=== PATIENT | male | born 1950 | race American Indian/Alaskan Native ===

== ENCOUNTER 2021-10-11 13:50 | Emergency (ER) | payer OTHER ==
[~2021-10-11] VITALS: Ht 182.9 cm; Wt 116.1 kg
== END 2021-10-11 16:16 | disposition home or self-care (01) ==
LOC: ED 13:50
DX: S80.01XA Contusion of right knee, initial encounter (principal); I10 Essential (primary) hypertension; Z88.0 Allergy status to penicillin; W19.XXXA Unspecified fall, initial encounter
CPT/HCPCS: 73560; 99283-25

== ENCOUNTER 2021-10-21 01:40 | Inpatient (IN) | payer OTHER ==
[~2021-10-21] VITALS: Ht 182.9 cm; Wt 119.0 kg
--- OUTSIDE RECORDS SUMMARY | 2021-10-21 03:29 | XMS ---
PreManage Notification: MOISES BHATIA Security Zigzag App[employer]quer Events No recent Security Events currently on file CRITERIA MET - [facility] - 2 Visits in 30 Days CARE PROVIDERS There are no care providers on record at this time. Karrie has no Care Guidelines for this patient. [facility] (12 MO.) [facility] [place] TOTAL 3 NOTE: Visits indicate total known visits. ED/C VISIT TRACKING (12 MO.) 10/21/2021 01[facility]40 [facility] [place] [facility]: Emergency COMPLAINT: - VOMITING 10/18/2021 14:34 [facility] Andrew MCDONALD TYPE: Emergency DIAGNOSES: - Other injury of unspecified body region, initial encounter - Knee Pain - Unilateral primary osteoarthritis, right knee - knee swelling - Contusion of right knee, initial encounter 10/11/2021 13:50 [facility] Sanabria TYPE: Emergency COMPLAINT: - FALL,RT KNEE INJ DIAGNOSES: - Allergy status to penicillin - Essential (primary) hypertension - Unspecified fall, initial encounter - Contusion of right knee, initial encounter - Pain in right knee INPATIENT VISIT TRACKING (12 MO.) No inpatient visits to display in this time frame [email or web address]
--- NOTE | 2021-10-21 06:50 | NUR ---
pt ARRIVED TO CCU VIA STRETCHER FROM ED. pt ABLE TO TRANSFER SELF OVER TO BED FROM STRETCHER. THIS RN DID INTAKE ASSESSMENT. pt LIVES BY SELF IN AN APARTMENT WITH DAUGHTER LIZZIE [place] [place] [address]. pt HAS A LARGE HEMATOMA ON RIGHT LEG [facility] pt ALSO HAS SHRAPNEL WOUND IN LEG AND DEFORMITY TO LEFT ANKLE. PROVIDED WATER. CALL LIGHT WITHIN REACH.
--- NOTE | 2021-10-21 07:41 | NUR ---
CARE OF APTIENT RESUMES AT THIS TIME. OCTREOTIDE TURNED OFF AND LEVOPHED TURNED DOWN FROM 7.5 TO 4 MCG/MIN. PT STATES HE IS FEELING OKAY, AND HAD AN EVENTFUL NIGHT. PT'S DAUGHTER JAVIER REMAINS IN ROOM AND ATTENTIVE TO PATIENT.
--- NOTE | 2021-10-21 08:30 | NUR ---
CENTRAL LINE DRESSING CHANGED ON RIGHT NECK. PT ALSO ON ROOM AIR NOW SP02 IS 97% ON 1 L. SP02 93% ON ROOM AIR. PT TAKEN OFF LEVOPHED. BP NOW 80/68 (73). WILL CONTINUE TO MONITOR CLOSELY. PT WANTS CLEAR LIQUIDS, BUT ALSO HAVING 10/10 ABDOMINAL PAIN. ASKED PT TO STAY NPO AT THIS TIME UNTIL THIS RN CAN COMMUNICATE WITH MD REGARDING IF HE SHOULD BE EATING ATALL OR NOT. PT ALSO REPORTS THAT HIS LAST BM AT HOME WAS BLACK AND DIARRHEA, WHICH OCCURED FRIDAY.
--- NOTE | 2021-10-21 10:17 | NUR ---
DR. JESUS IN TO SEE PATIENT AND PLAN OF CARE BEING DISCUSSED. LR TO BE STARTED AT 125 ML/HR. PT ASKING FOR MORE PAIN MEDICATION, WELL SOMETHING TO DRINK.
--- NOTE | 2021-10-21 10:59 | NUR ---
PATIENT GIVEN GI COCKTAIL BUT IS STILL WANTING WATER. DISCUSSED WITH PT THAT DR. LEE WILL SEE HIM. PT FRUSTRATED AND WANTING TO KNOW WHAT TIME HE WILL BE SEEN. IVF CONTINUE AT 125 ML/HR. BP REMAINS GOOD OFF LEVOPHED, CURRENTLY 115/79.
--- NOTE | 2021-10-21 11:44 | NUR ---
PATIENT REPORTS THAT GI COCKTAIL DID NOT HELP HIS PAIN IN HIS ABDOMEN. PT WILL BE GIVEN MORPHINE NOW PER DR. JESUS ORDER. PT HAS WHITE D/C NOW WELL. ONCE IV PROTONIX GTT IS FINISHED, PT WILL SWITCH TO BID DOSING. WILL CONTINUE TO MONITOR.
--- NOTE | 2021-10-21 12:02 | NUR ---
PATIENT USES CALL LIGHT AND STATES, "THIS MEDICATION ISN'T WORKING. MY STOMACH IS HURTING SO BAD." HELPED PATIENT TO SIT UP AT EDGE OF BED AND PT STARTS TO DRY HEAVE. NO VOMITING NOTED YET BUT HAS DRY HEAVED 4-[address] LEE IN TO SEE PATIENT AND PLAN OF CARE BEING DISCUSSED. PT STARTING TO SHAKE VIOLENTLY AND ASKING FOR MORE WARM BLANKETS. TEMP CHECKED ORALLY AND FOUND TO BE 98.2. PT GIVEN MORPHINE AND ZOFRAN. WILL CONTINUE TO MONITOR CLOSELY.
--- NOTE | 2021-10-21 12:41 | NUR ---
PATIENT TAKEN TO HAVE UPPER SCOPE AT 1235. REPORT GIVEN TO OR NURSES. PT'S DAUGHTER JAVIER CALLED TO GIVE UPDATE ON PROCEDURE. PT RESTING SLIGHTLY MORE COMFORTABLY AFTER THE 2 MG IV MORPHINE WAS GIVEN.
--- NOTE | 2021-10-21 13:33 | NUR ---
PT ARRIVES BACK TO ROOM FROM PACU WITH NURSE AND INTERVENTIONAL SALE CONSULTANT. PT SLOWLY WAKING UP. DOES REMAIN CONFUSED TO LOCATION AND EVENT, BUT IS COMING AROUND. REPORT FROM [place]. PT DENIES PAIN AT THIS TIME.
--- NOTE | 2021-10-21 13:45 | NUR ---
10/21/21 1345 Zoe Melissa 4045-PATIENT RETURNED TO CCU DROWSY ANJELICA PAYMASTER OF [employer]SES GAVE REPORT TO ROSE MARIE BYRNES PATIENT REPOSITIONED TO NEW BED. PATIENT DOES NOT NEED TO BE RECOVERED BY PACU.
--- NOTE | 2021-10-21 13:46 | NUR ---
PTS O2 TURNED DOWN TO 3L FROM 5L. SAT REMAINS 96%
--- NOTE | 2021-10-21 13:54 | NUR ---
1353- WHILE TURNING PT TO REMOVE EXTRA BLANKETS, PTS BLOOD PRESSURE DROPS TO 70S WITH LOW MAPS. TURNED ON LEVOPHED DRIP TO 2 MCG/MIN. 1356- PT REMAINS WITH LOW BLOOD PRESSURE 87/36 WITH MAP OF 51. LEVOPHED TURNED UP TO 4 MCG/MIN. PT WAKES EASILY TO VOICE. BEGINNING TO ASK QUESTIONS OF WHAT HAPPENED.
--- NOTE | 2021-10-21 14:06 | NUR ---
PTS VITALS STABLE ON 4 MCG/MIN OF LEVOPHED. WAKES EASILY TO NURSE. ORIENTED TO PERSON AND PLACE. ASKING APPROPRIATE QUESTIONS. RESPS EVEN. PT REPORTS SOME PAIN TO ABD THOUGH QUICKLY BACK TO SLEEP. NO SIGNS OF DISTRESS.
--- NOTE | 2021-10-21 14:34 | NUR ---
PATIENT RETURNS FROM GI SUITE AFTER HAVING UPPER GI SCOPE WITH DR. LEE. PT NOW ON LR AT 75 ML/HR INFUSING INTO RIGHT CENTRAL LINE. PT ON LEVOPHED AT 4 MCG/MIN, BUT THIS WAS ABLE TO BE TITRATED DOWN TO 2 MCG/MIN AFTER BP SBP >[address] LEE WANTING THIS TURNED OFF SOON POSSIBLE. PT IS DUE TO VOID AFTER HAIVNG WHITE OUT AROUND 1000. PT'S DAUGHTER JAVIER ARRIVES AND GIVEN UPDATE FROM DR. LEE AND THIS RN. ORDERS FOR CARFATE, AND FOR CLEAR LIQUIDS, BUT TO BE GIVEN CAUTIOUSLY TO TRY AND PREVENT PT FROM BECOMING NAUSEOUS AND VOMITING ANY FURTHER. PT HAD A PEEWEE ULCER FOUND ON SCOPE AND CLOTTING AGENT WAS USED ON IT. WILL CONTINUE TO MONITOR CLOSELY.
[2021-10-21] MEDS ORDERED: ASPIRIN81 MG PO (16:30)
[2021-10-21] MEDS ORDERED: OMEPRAZOLE20 MG PO (16:32)
--- NOTE | 2021-10-21 17:10 | NUR ---
PATIENT SITTING UP RIGHT AND EATING CLEAR LIQUID TRAY. NO FURTHER VOMITING NOTED OF YET TODAY, AND ABDOMINAL PAIN SEEMS SLIGHTLY BETTER AT THIS TIME COMPARED TO EARLIER. PT HAS RECEIVED 3 DOSE OF IV MORPHINE FOR 10/10 ABD PAIN. WHEN PT'S DAUGHTER ARRIVES SHE NOTES THAT PATIENT USED TO BE "ALLERGIC" TO MORHPINE FROM A MUCH PRIOR EXPERIENCE ACCORDING TO THE PATIENT, BUT THIS WAS UNKNOWN UPON ORDERING MORPHINE EARLIER TODAY. THUS FAR, PATIENT HAS HAD NO ADVERSE REACTIONS TO THE MORPHINE. PT STATES "I DONT' REALLY THINK I AM ALLERGIC TO MORPHINE, THAT WAS FROM WAY BACK WHEN AND THEY WERE GIVING MORPHINE TO EVERYONE." WILL CONTINUE TO MONITOR ZOE.
--- NOTE | 2021-10-21 19:51 | NUR ---
PT IS SITTING UP IN BED Loyda STEPHEN IS AT BEDSIDE PROVIDE SCHEDULED NEB TREATMENT.
--- NOTE | 2021-10-21 20:30 | NUR ---
PT ALERT AND ORIENTED VOIDED 250ML IN URINAL. HE IS CONCERNED ABOUT WHEN HE CAN GO HOME AND WHEN HE IS GOING TO BE ALLOWED TO TAKE HIS NORMAL PAIN REGIME PER HOME, HE ALSO SAID IT HAS BEEN INCREASED RECENTLY FROM 2 TO 3 TABS. CBC HAS BEEN DRAWN WITH 5ML OF WASTE WHILE IV PUMP STOPPED FROM LEFT IJ, BRISK BLOOD RETURN.
--- NOTE | 2021-10-21 23:01 | NUR ---
PT CALLED TO REQUEST PAIN MEDICATION, 2MG IV MORPHINE ADMINISTERED PRN. PT REPORTS 9/10 PAIN AT HIS BACK THIS IS CHRONIC.
--- NOTE | 2021-10-22 01:03 | NUR ---
PT CALLED NURSES STATION TO REQUEST PAIN MEDICATIONAT THIS TIME HE REPORTS 9/10 PAIN CHRONIC BACK PAIN. PT REPORTS NO NAUSEA, HE SAID HE HAS "HAS TWINGE MINIMAL PAIN OCCASIONALLY" HE SAID IT IS TOLERABLE.
--- NOTE | 2021-10-22 01:59 | NUR ---
INTO PT ROOM TO DRAW CBC FROM IJ, PT RESTING IN BED EYES CLOSED RR REGULAR. NO DISTRESS NOTED. PT ALERT TO RN AT BEDSIDE.
--- NOTE | 2021-10-22 02:20 | NUR ---
PT CALLED TO REQUEST PAIN MEDICATION, THE CURRENT MORPHINE ORDER FOR PAIN IS NOT AVAILABLE YET, CALLED PT HAS BEEN ADMINISTERED 2MG IV MORPHINE PRN Q2 HOURS AND IS NOW REQUESTING PAIN MEDICATION FOR 9/10 PAIN CHRONIC BACK PAIN, MORPHINE NOT AVAILABLE FOR 45 MIN., REPORTED THAT PT WOULD LIKE TO START BACK ON HIS HOME REGIME. GAVE ORDER TO START OXYCODONE 5-10 MG PO PRN AT THIS TIME. ALSO UPDATED ON MOST RECENT CBC RESULTS HE ASKED THAT THIS RN CHECK WITH LAB AND MAKE SURE THERE IS A UNIT OF RBC CROSS MATCHED AND READY FOR TRANSFUSION FOR AM PENDING CBC RESULTS.
--- NOTE | 2021-10-22 02:30 | NUR ---
CALLED LAB TO CHECK IF PT HAS RBC UNIT AVAILABLE AND CROSS MATCH FOR TRANSFUSION IF NEEDED IN AM, CHERELLE FROM LAB SAID YES THERE ARE TWO "O" NEG UNITS CROSS MATCHED FOR HIM IF NEEDED.
--- NOTE | 2021-10-22 05:27 | NUR ---
PT RESTING IN BED EYES CLOSED RR REGULAR AT 18 BPM, NO DISTRESS NOTED.
--- NOTE | 2021-10-22 05:44 | NUR ---
CALL LIGHT ON. pt REQUESTED PAIN MEDICATION. REPORTED THAT THE ORAL PAIN MEDICATION WORKED BETTER. EDUCATED pt ON TIMING OF MEDICATIONS. pt IS OKAY WAITING FOR NEXT DOSE OF ORAL MEDICATION. URINAL EMPTIED OF 350MLS DARK YELLOW URINE. CALL LIGHT WITHIN REACH.
--- NOTE | 2021-10-22 06:00 | NUR ---
PT CALLED FOR PAIN MEDICATIONS, OXYCODONE 10MG PRN ADMINISTERED, AM ASSESSMENT COMPLETE. PT PROVIDED WITH STRAWBERRY JELLO AND FRESH WATER. PT STOOD AT BEDSIDE TO HAVE BED LINENS STRAIGHTENED, HE THEN HAD NO FURTHER REQUESTS THIS AM.
--- NOTE | 2021-10-22 08:00 | NUR ---
CARTOGRAPHIC DESIGNER, MEDICATION GIVEN. PATIENT SLEEPING COMFORTABLY IN BED. MILDY DROWSY DUE TO PREVIOUS SHIFT PRN MEDICATIONS GIVEN, BUT DOES WAKE EASILY AND RESPONDS APPROPRIATELY. PATIENT ABLE TO FOLLOW COMVERSATION AND FOLLOW COMMANDS WHEN ASKED. PATIENT WANTED TO WAIT ON BREAKFAST AT THIS TIME AND DENIES ANY NEEDS. PERSONAL ITEMS AND CALL LIGHT WITHIN REACH.
--- NOTE | 2021-10-22 10:00 | NUR ---
Patient is sitting up in bed getting ready to independently use urinal. Patient states his pain is doing well and doesn't need anything additional at this time. Patient able to eat clear liquid breakfast without difficulty and tolerated well. Patient is perfusing better and has better color this morning compared to yesterday. Patient denies needs at this time. Patient told he would be transferring to MS unit today. Personal items and call light within reach.
--- NOTE | 2021-10-22 11:01 | NUR ---
Report given to FITZ Cook for MS unit transfer.
--- NOTE | 2021-10-22 11:45 | NUR ---
Patient to the medical floor at this time. Patient arrived to unit a/ox4. Admin oxycodone 10mg po for reported back/leg pain, 10/27. Vital signs stable at this time. Oriented pt to room and call light.
[2021-10-22] MEDS ORDERED: ZESTRIL40 MG PO (15:51)
[2021-10-22] MEDS ORDERED: ALBUTEROL2.5 MG/3 M INH (15:51)
--- NOTE | 2021-10-22 19:15 | NUR ---
report from iris moeller, pt returned today from egd - no current bleed at this time, low h/h noted. 3 lumen iv right neck intact sl, confirm stool sample needed for hpylori - pt denies needs, call light in reach.
--- NOTE | 2021-10-22 21:17 | NUR ---
to pt room, sob, sats 94% ra, hr 98. pt sitting up at bed, feet on floor - denies rt tx, just wants to sit up. offered tray table to orthopnic rest - denies.
--- NOTE | 2021-10-22 23:26 | NUR ---
pt requested pain meds, rn provided med ordered 5 mg oxy. pt upset that there was only 1 pill? he said he had been taking 2 - reviewed MAR with pt and 5mg 1 pill has been given last 4 doses. discussed with discharge planner, pt took the 5mg and will call dr in am. and cont to use tylenol and oxy as scheduled prn.
--- NOTE | 2021-10-22 23:32 | NUR ---
DISCUSSED WITH MARKETING ANALYTICS ANALYST, ADDED HEPARIN 3 LUMEN R IJ, FLUSH Q12 AND PRN.
--- NOTE | 2021-10-23 00:48 | NUR ---
PT PROVIDED STRAWBERRY ENSURE - RESTING IN BED, CALL LIGHT IN REACH - PO PAIN MEDS GIVEN - CO OF R KNEE PAIN.
--- NOTE | 2021-10-23 02:59 | NUR ---
eyes closed, resp even, call light in reach.
--- NOTE | 2021-10-23 04:40 | NUR ---
0300-Pt up to bed edge to use urinal,winded with activity. Repositoned in the bed and given an ensure drink at his request.
--- NOTE | 2021-10-23 05:08 | NUR ---
5287- Pt calls asking for pain Rx for 10/10 Rt knee pain. 10mg oxycodone po given. Pt sits at edge of bed to take medication and use urinal.
--- NOTE | 2021-10-23 05:20 | NUR ---
0520- [facility] Dc'd for oozing some blood, pt states its irritating him. Tip intact, pressure applied.
--- NOTE | 2021-10-23 07:05 | NUR ---
Report received from Margie BYRNES. Pt resting in bed, on room air, awakens to voice and states no needs at this time. Will continue plan of care. Call light in reach.
--- NOTE | 2021-10-23 08:41 | NUR ---
Scheduled medications administered, assessment complete. Pt reports pain to back, RLE and LLE. Made plan for PRN medication when available. Pt SOB with exertion- states baseline with COPD. Lungs coarse w exp wheeze noted throughout. Bowel tones active. CMS intact- significant bruising and scarring on RLE. Breakfast delivered.
--- NOTE | 2021-10-23 09:06 | NUR ---
Pt medicated with PRN oxycodone and tylenol for 8/10 back, R leg pain.
--- NOTE | 2021-10-23 11:05 | NUR ---
Administered scheduled carafate. Pt states pain has improved with PRN meds. Discussed plan of care for day, pt agreeable.
--- NOTE | 2021-10-23 11:40 | NUR ---
Pt states he lives in a handicap appartment. Daughter and he son's live across the street and help him with all needs. He is a and uses their services. Pt plans on dc to home when he discharges. States his GI bleed has stopped.
--- NOTE | 2021-10-23 12:25 | NUR ---
Scheduled ABX given. Made plan for PRN meds when available.
--- NOTE | 2021-10-23 13:20 | NUR ---
Pt medicated with PRN oxycodone and tylenol. VSS, I/Os complete. Pt encouraged to drink po fluids as urine dark. Pt verbalizes understanding.
--- NOTE | 2021-10-23 17:07 | NUR ---
Scheduled medications administered. PRN pain medication given to patient for 8 back pain. Water refilled, urinal emptied. Pt in good spirits. No further needs at this time.
--- NOTE | 2021-10-23 19:25 | NUR ---
report agnieszka Tsai rn, pt with 3 lumen sl ij to right side wnl, still need stool sample for h pylori, pt toll reg. diet, denies needs, call light in reach.
--- NOTE | 2021-10-23 21:36 | NUR ---
PT TALKATIVE IN GOOD SPIRITS - TALKING ABOUT GRANDKIDS! PT HAS AUDIBLE WHEEZES - CHRONIC COPD 97% RA. DENIES NAUSA VOMITING, NEW STRAWBERRY ENSURE PROVIDED - VITALS WNL, I/O - ENC. WATER - PT SL R ARM. CALL LIGHT IN REACH - PO PAIN MEDS GIVEN FOR CHRONIC BACK PAIN
--- NOTE | 2021-10-24 00:06 | NUR ---
pt called and new grad answered light - reported to me that pt was shaking and described PTSD as the cause. wm blkts given, reduced light and tv and pt resolved stress and fell back asleep. rn checked and eyes closed, resp even. call light in reach.
--- NOTE | 2021-10-24 06:32 | NUR ---
[facility] DOW[facility] [phone], SEE PAPER CHARTING.
--- NOTE | 2021-10-24 07:46 | NUR ---
Report received from Margie BYRNES. Pt resting in bed with eyes closed, even and unlabored respirations on room air. No needs identified at this time. Call light in reach.
--- NOTE | 2021-10-24 08:30 | NUR ---
Arrived in patient's room, patient is oriented to year and time. He states that he feels like his care has been good in the hospital and that "they have done a good job." Juan verbalizes that his pain has been well controlled and he understands the medications that he has been given. He denies complaints or concerns at this time.
--- NOTE | 2021-10-24 08:47 | NUR ---
Scheduled medications administered, assessment complete. pt sitting up at EOB and states feeling nauseated, prn zofran administered, pt states last BM 10/19/21. Pt reports pain in back, made plan for PRN medications. Lungs coarse, baseline COPD, exp wheeze heard scattered. HRR. Bowel tones active.
--- NOTE | 2021-10-24 10:00 | NUR ---
Pt medicated with PRN oxycodone and tylenol for 8/10 chronic back pain. Pt states somewhat nauseated, denies need for medication, would like to rest at this time. Call light in reach.
--- NOTE | 2021-10-24 10:38 | NUR ---
Scheduled medications administered, pt resting in bed, using urinal. No further needs at this time.
--- NOTE | 2021-10-24 14:11 | NUR ---
PATIENT GIVEN 10MG OF OXYCODONE AND A TYLENOL FOR 10/10 BACK/KNEE PAIN.
--- NOTE | 2021-10-24 15:05 | NUR ---
No change in plan for dc. Pt will not dc today.
--- NOTE | 2021-10-24 15:10 | NUR ---
PATIENT BRUSHED HIS OWN DENTURES ALSO WASHED HIS FACE. ASKED HIM IF HE WOULD LIKE A SHOWER. HE REALY DIDN'T GIVE ME AN ASWER.
[2021-10-24] MEDS ORDERED: CLARITHROMYCIN500 MG PO (16:27)
[2021-10-24] MEDS ORDERED: METRONIDAZOLE250 MG PO (16:28)
[2021-10-24] MEDS ORDERED: PANTOPRAZOLE SO40 MG PO (16:33)
[2021-10-24] MEDS ORDERED: CARAFATE1 GM PO (16:36)
--- NOTE | 2021-10-24 17:24 | NUR ---
Central line discontinued WNL with catheter tip intact and line measuring 21.5cm. Pressure held until stable, pressure dressing applied with petroleum and sterile gauze. Dressing C/D/I. Pt educated on post removal care, verbalizes understanding. Pt resting supine at this time.
--- NOTE | 2021-10-25 14:14 | OR ---
[facility] [address] [place], [place] [address] Signed DATE OF OPERATION: 10/21/2021 SURGEON: Amy Lee MD PREOPERATIVE DIAGNOSES: Persistent hematemesis with anemia, initially hypotensive with epigastric pain, nausea, and vomiting. POSTOPERATIVE DIAGNOSIS: Collar (Sukhi) ulceration of proximal stomach, clot with visible vessel. PROCEDURES: Esophagogastroduodenoscopy with control of bleeding gastric ulcer; clips and Hemospray ([employer]). ANESTHESIA: Intravenous sedation, propofol infusion; Jere Chavez CRNA INDICATIONS: This 71-year-old [place]inean man was admitted to the hospital in the connie cleaner hours by Dr. Jesus after his presentation in the emergency room, where he was evaluated by Dr. Galdamez, having had hematemesis as well as hypotension. He did require pressor support as well as fluids and 2 units of blood transfusion. He appeared to have had nausea and vomiting, followed by hematemesis and thus some suspicion exists for Kassandra-Curry tear. He has been managed in the Intensive Care Unit by Dr. Jesus and is no longer hypotensive and does not appear to have active bleeding currently. He does have persistent abdominal pain. He has been treated with Protonix intravenously administered. He is admitted to undergo upper endoscopy at this time to better characterize the source of his bleeding and control it or prevent recurrent bleeding as able. The risks of bleeding, infection, and perforation were reviewed with him. He understands and wished to proceed. FINDINGS: There was no clot in the stomach. He did have generalized gastritis, however. The pylorus was normal and the duodenum was normal. The source of the bleeding was Collar ulcer (Suhki's ulcer) in the proximal stomach. Hemoclips were rather ineffective in their positioning due to the awkwardness of the scope in relation to the clipping device. Ultimately, a Cook Hemospray was applied with apparently good effect. Esophagus itself was otherwise normal. There were no varices. Electronically Signed By: AMY LEE MD 10/25/21 1414 PATIENT NAME: MOISES BHATIA OPERATIVE REPORT DATE OF : 46 REPORT #: [id number] PHYSICIAN: AMY LEE MD PCP: OTHER PCP REPORT IS CONFIDENTIAL AND NOT TO BE RELEASED WITHOUT AUTHORIZATION [facility] [address] [place], [place] [address] Signed DESCRIPTION OF PROCEDURE: The patient was brought to the endoscopy suite and placed in lateral decubitus position given intravenous sedation with propofol infusional technique. A bite block was placed, though he is edentulous. An Olympus video upper endoscope was passed into the hypopharynx. Vocal cords appeared normal. Scope was advanced to the esophagus, throughout its length it was normal; there was no evidence of Kassandra-Curry tear as had been suspected. The scope was advanced to the stomach, chronic inflammatory change was noted as well as some edema. No clots, but minimal amounts of blood. The pylorus was normal, scope was passed through into the duodenum. The scope was then passed to the third portion of the duodenum. There was no sign of clot, blood, ulceration, or inflammation. The scope was withdrawn and retroflexed view undertaken. There appeared to be some relatively fresh blood in the proximal stomach, but no sign of spurting vessel per se. The scope was withdrawn and re-oriented and irrigation undertaken ultimately identifying what appeared to be a gastric erosion and ultimately found to be a gastric ulceration. This corresponded to the hiatal hernia margin, less consistent with Sukhi's ulcer. A retroflexed view was awkward for placement of clips, and therefore the scope was withdrawn and an antegrade approach, clipping of the ulceration undertaken. There was visible vessel and clot in the base of the ulcer. It was irrigated and although it did not markedly bleed, was oozing a bit. Multiple clips were attempted to be applied to the appropriate site for the base of the ulcer, but despite every effort, they were ineffective in their placement. On that basis, Cook Hemospray was directly applied to the site. Mindful that gastric dilatation from the can cause gastric distention, it certainly was noted and he did have some bradycardia related to it, which was quickly aborted with suctioning of the stomach. Re-inspection showed no sign of bleeding and good apposition of the material to the ulcer bed. An additional dosing was undertaken with special care to avoid gastric distention. The scope was then withdrawn and the patient taken to the recovery room in good condition. CONCLUDING DIAGNOSES: Gastrointestinal bleeding related to gastric ulceration. Biopsies were not obtained on this occasion, so recurrent bleeding with another source of bleeding (biopsy site). Carafate as well as PPI medication would be most appropriate management at this time. A repeat upper endoscopy would be appropriate in four-six weeks upon his full recovery. Treatment for H pylori may be a consideration as biopsies for CLOtest were not done at this time. Alternatively, a urea breath test (not locally available at this time) or serology would be appropriate to better guide that decision. Electronically Signed By: AMY LEE MD 10/25/21 1414 PATIENT NAME: MOISES BHATIA OPERATIVE REPORT DATE OF : 46 REPORT #: [id number] PHYSICIAN: AMY LEE MD PCP: OTHER PCP REPORT IS CONFIDENTIAL AND NOT TO BE RELEASED WITHOUT AUTHORIZATION [facility] [address] [facility] [place], [place] [address] Signed MD JEREMY Alston/MODL /[id number] cc: Dr. Denice Jesus MD [facility] Copies: HANH JESUS MD [facility] ~ Electronically Signed By: AMY LEE MD 10/25/21 1414 PATIENT NAME: MOISES BHATIA OPERATIVE REPORT DATE OF : 46 REPORT #: [id number] PHYSICIAN: AMY LEE MD PCP: OTHER PCP REPORT IS CONFIDENTIAL AND NOT TO BE RELEASED WITHOUT AUTHORIZATION
--- NOTE | 2021-10-25 14:14 | CONS ---
[facility] [address] [place], [place] [address] Signed DATE OF CONSULTATION: 10/21/2021 REQUESTING PHYSICIAN: Hanh Jesus M.D. PROBLEM: Hematemesis. HISTORY OF PRESENT ILLNESS: This 71-year-old [place] man, who is a [place] , presents to the emergency room with complaints of hematemesis. He is brought in by ambulance saying that he began his hematemesis late in the evening. He was feeling dizzy and unwell and had upper abdominal and epigastric pain. He was evaluated in the emergency room by Dr. Galdamez and noted to have an initial blood pressure of 101/73, which decreased to at one point 78/64, which was addressed by transfusion as well as a brief norepinephrine drip. His presenting hematocrit was 23.2 with white count of 12.1 and platelets of 150,000, subsequently after 2 units of blood hematocrit 28.6, white count of 17.3, and platelets 259,000. The patient underwent a CT scan of the abdomen noting a hiatal hernia, fat containing incisional hernia. CT scan of the chest with contrast confirmed hiatal hernia and pulmonary scarring as well. Notably, the patient had been given TXA by EMS services and was initiated on a Protonix bolus and drip. The patient had at least one episode of vomiting, but nothing after 02:30 a.m. The patient received Lasix after concerns regarding pulmonary congestion and he was subsequently evaluated and admitted by Dr. Jesus. An octreotide drip had been initiated and Protonix drip initiated and maintained as well. Since observation in the Intensive Care Unit, he has had no further episodes of hematemesis, and he certainly has had no hypotension, indeed he is currently hypertensive. He has a fair amount of tremulousness, though denies any alcohol use as a baseline issue. His past medical history does include cholecystectomy. The spleen was noted to be normal and there were no other findings of concern on CT scan of chest or abdomen. REVIEW OF SYSTEMS: He has some epigastric and mid abdominal pain dominantly. He has had dark stool apparently, but no actual blood per rectum. He has had no hematemesis since his ICU evaluation and treatment. PHYSICAL EXAMINATION: GENERAL: This is an [place] man, who looks to be in mild discomfort and has some tremulousness. He is alert and oriented, however. Mucous membranes are moist. Electronically Signed By: AMY LEE MD 10/25/21 1414 PATIENT NAME: MOISES BHATIA CONSULTATION DATE OF : 46 REPORT #: [id number] PHYSICIAN: AMY LEE MD PCP: OTHER PCP REPORT IS CONFIDENTIAL AND NOT TO BE RELEASED WITHOUT AUTHORIZATION [facility] [address] [place], [place] [address] Signed CHEST: Shows normal respiratory excursion without tachypnea currently. ABDOMEN: Obese, generally soft. EXTREMITIES: Show no clubbing, cyanosis, or edema. ASSESSMENT AND PLAN: It appears that he had nausea and vomiting in a somewhat protracted way prior to his actual hematemesis and this does suggest the possibility of a Kassandra-Curry tear accounting for his bleeding. He has required transfusion of blood and certainly the possibility of peptic disease or neoplastic disease as a consideration as well. Upper endoscopy is recommended to better confirm or refute these findings and I discussed with the patient. The risks of bleeding, infection, perforation, and cardiopulmonary complications were all reviewed in detail. He understands and wished to proceed. I have confirmed this with Dr. Jesus as well. We will certainly plan to use anesthesia support for airway management and so on. Amy Lee MD /[id number] /[id number] cc: Hanh Jesus MD [facility] Copies: HANH JESUS MD [facility] ~ Electronically Signed By: AMY LEE MD 10/25/21 1414 PATIENT NAME: MOISES BHATIA CONSULTATION DATE OF : 46 REPORT #: [id number] PHYSICIAN: AMY LEE MD PCP: OTHER PCP REPORT IS CONFIDENTIAL AND NOT TO BE RELEASED WITHOUT AUTHORIZATION
== END 2021-10-24 18:20 | disposition home or self-care (01) | DRG 378 ==
LOC: ED 01:40 → CCU 04:56 → MS 04:56
PROVIDERS: Surgery; ADMIT Internal Medicine; ATTEND Family Medicine
PROC: 0W3P8ZZ Control Bleeding in Gastrointestinal Tract, Via Natural or Artificial Opening Endoscopic (ICD-10-PCS; 2021-10-21)
PROC: 02HV33Z Insertion of Infusion Device into Superior Vena Cava, Percutaneous Approach (ICD-10-PCS; 2021-10-21)
PROC: 30233N1 Transfusion of Nonautologous Red Blood Cells into Peripheral Vein, Percutaneous Approach (ICD-10-PCS; principal; 2021-10-21 12:53)
DX: K25.4 Chronic or unspecified gastric ulcer with hemorrhage (principal); D62 Acute posthemorrhagic anemia; R65.10 Systemic inflammatory response syndrome (SIRS) of non-infectious origin without acute organ dysfunction; M25.061 Hemarthrosis, right knee; F11.20 Opioid dependence, uncomplicated; Z20.822 Contact with and (suspected) exposure to COVID-19; J44.9 Chronic obstructive pulmonary disease, unspecified; G89.29 Other chronic pain; M54.9 Dorsalgia, unspecified; I10 Essential (primary) hypertension; N40.0 Benign prostatic hyperplasia without lower urinary tract symptoms; Z96.652 Presence of left artificial knee joint; Z88.0 Allergy status to penicillin; Z98.890 Other specified postprocedural states
CPT/HCPCS: 00731; 36415; 36430; 71045; 71260; 74177; 80053; 81001; 83690; 83735; 85025; 85610; 86850; 86900; 86901; 86922; 87338; 87502; 94640; 94667; 94668; 94760; A9270; C9113; J1940; J2250; J2270; J2354-JA; J2405; J2704; J3010; J7030; J7050; J7060; J7121; P9016; Q9967; U0003

== ENCOUNTER 2021-10-25 17:22 | Observation (INO) | payer OTHER ==
[~2021-10-25] VITALS: Ht 182.9 cm; Wt 122.8 kg
[~2021-10-25 17:22] MED LIST: ALBUTEROL2.5 MG/3 M INH; ASPIRIN81 MG PO; CARAFATE1 GM PO; CLARITHROMYCIN500 MG PO; METRONIDAZOLE250 MG PO; OMEPRAZOLE20 MG PO; PANTOPRAZOLE SO40 MG PO; ZESTRIL40 MG PO
--- OUTSIDE RECORDS SUMMARY | 2021-10-25 17:30 | XMS ---
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 Karrie has no Care Guidelines for this patient. Eliane V[facility] (12 MO[address] [facility] TOTAL 4 NOTE: Visits indicate total known visits. ED/UCC VISIT TRACKING (12 MO.) 10/25/2021 17:22 [facility] Emergency COMPLAINT: - RECTAL BLEEDING 10/21/2021 01:40 [facility] [place] TYPE: Emergency COMPLAINT: - VOMITING 10/18/2021 14:34 [facility] Nisha MCDONALD TYPE: Emergency DIAGNOSES: - Contusion of right knee, initial encounter - Other injury of unspecified body region, initial encounter - Knee Pain - Unilateral primary osteoarthritis, right knee - knee swelling 10/11/2021 13:50 [facility] [place] TYPE: Emergency COMPLAINT: - FALL,RT KNEE INJ DIAGNOSES: - Pain in right knee - Allergy status to penicillin - Essential (primary) hypertension - Unspecified fall, initial encounter - Contusion of right knee, initial encounter INPATIENT VISIT TRACKING (12 MO.) 10/21/2021 04:56 [facility] [place] TYPE: Medical Surgical COMPLAINT: - UPPER GI BLEED [email or web address]
--- NOTE | 2021-10-25 23:43 | NUR ---
PATIENT ARRIVED TO THE UNIT VIA STRETCHER AND WAS ABLE TO TRANSFER INDEPENDENTLY. PATIENT IS AAOX4. WHEEZING BUT TOLERATING ROOM AIR. FIRST UNIT PRNC INFUSING. NO SIGN REACTION. VS STABLE.
--- NOTE | 2021-10-26 00:05 | NUR ---
FIRST UNIT PRBC FINISHED, NO SIGN RECATION. PATIENT FEELING LESS DIZZY/LIGHTHEADED WHEN STANDING TO MOVE TO BSC. PATIENT VOIDED. RETURNED TO BED. SECOND UNIT PRBC STARTED. VERIFIED WITH SECOND RN GRACIELA.
--- NOTE | 2021-10-26 02:23 | NUR ---
second unit PRBC FINISHED. PATIENT IS RESTING IN BED. ENCOURAGED TO TRY AND REST. WARM BLANKETS PROVIDED. VS STABLE. PATIENT VOIDED TO THE URNAL.
--- NOTE | 2021-10-26 05:15 | NUR ---
PATIENT CONTINUES TO REPORT PAIN IN HIS RIGHT LOWER EXTREMITY. PRN MEDS PROVIDED. ASSISTED PATIENT TO REPOSITION FOR COMFORT. VS STABLE.
--- NOTE | 2021-10-26 07:36 | NUR ---
REPORT RECIEVED FROM MARVIN BYRNES. RT IN TO SEE PT.
--- NOTE | 2021-10-26 09:35 | NUR ---
IN TO SEE PT. PAIN C/O 10/27 RIGHT LEG PAIN, 1MG IV DILAUDID GIVEN.
--- NOTE | 2021-10-26 10:17 | NUR ---
DR ALARCON IN TO CONSULT ON PT
--- NOTE | 2021-10-26 10:45 | NUR ---
DR ALARCON STILL IN TALKING WITH PT ABOUT PLANS TO POSSIBLY TO A SCOPE TODAY. EKG ORDERED, RT IN ROOM TO DO EKG.
[2021-10-26] MEDS ORDERED: SIMVASTATIN40 MG PO (11:13)
[2021-10-26] MEDS ORDERED: VENTOLIN HFA18 GM INH (11:13)
[2021-10-26] MEDS ORDERED: OXYCODONE-ACET1 EAC3 PO (11:13)
[2021-10-26] MEDS ORDERED: METOPROLOL TART25 MG PO (11:13)
[2021-10-26] MEDS ORDERED: SPIRIVA RESPIMAT4 G1 INH (11:14)
[2021-10-26] MEDS ORDERED: METRONIDAZOLE500 MG PO (11:15)
[2021-10-26] MEDS ORDERED: CARAFATE1 GM PO (11:16)
--- NOTE | 2021-10-26 11:16 | NUR ---
MED REC COMPLETE
--- NOTE | 2021-10-26 11:18 | NUR ---
ANESTHESIA PROVIDER IN TO DISCUSS PLAN FOR SEDATION/INTUBATION WITH PT. PT AGREEABLE.
--- NOTE | 2021-10-26 11:42 | NUR ---
PT TO SURGERY WITH SURGERY RN AND ANESTHESIA FOR SCOPE.
--- NOTE | 2021-10-26 12:00 | NUR ---
10/26/21 1200 [address] Zamora- PT ARRIVES TO PACU NONAROUSABLE TO NOXIOUS STIMULI WITH AN OPA IN PLACE. RESP EVEN AND UNLABORED. OXYGEN SAT HIGH 90'S TO 100% ON 15L VIA NON REBREATHER. PT HAS AUDIABLE WHEEZING, WHICH IS REPORTED THAT HE HAD PRIOR TO THE PROCEDURE.
--- NOTE | 2021-10-26 12:52 | NUR ---
PT BACK FROM SURGERY, VSS, C/O PAIN IN RIGHT LEG. 1MG IV DILAUDID GIVEN.
--- NOTE | 2021-10-26 15:23 | NUR ---
PATIENT SLEEPING WHEN ATTEMPTS MADE TO VISIT. CHART REVIEW DONE.
--- NOTE | 2021-10-26 15:30 | NUR ---
PT UP TO VOID AGAIN, SLIGHTLY SOB WITH MOVEMET. NO COMPLAINTS, DRINKING MIRALAX.
--- NOTE | 2021-10-26 16:02 | NUR ---
PT CALLS FOR ASSIST USING URINAL, ASKED FOR SOME PAIN MEDICATION FOR 8/10 RIGHT KNEE AND BACK PAIN. 1MG IV DILAUDID GIVEN. PT CONT TO SIP ON MIRALAX AND JUICE.
--- NOTE | 2021-10-26 17:42 | NUR ---
PT HAS JUST FINISHED A CLEAR LIQUID TRAY, NO COMPLAINTS AT THIS TIME.
--- NOTE | 2021-10-26 18:44 | NUR ---
PT GOT UP TO BSC TO HAVE SOFT BLACK STOOL. BACK TO BED, SLIGHTLY DIZZY AND SOB WITH ACTIVITY, STATES "THAT TAKES A LOT OF EFFORT". PAIN MEDICATION GIVEN PER REQUEST 1MG IV DILAUDID GIVEN. PT THEN BACK UP TO BSC FOR ANOTHER STOOL.
--- NOTE | 2021-10-26 20:00 | NUR ---
PATIENT UP TO THE BSC. HAD SMALL/MEDIUM LOOSE STOOL MIXED WITH URINE. BLACK IN COLOR. PATIENT TOLERATES TRANSFERING WELL AND MOSTLY INDEPENDENT. ASSISTED WITH MEL CARE. VS STABLE. PATIENT PROVIDED WITH BROTH AND JELLO. PATIENT REQUESTING ADVANCED DIET, DISCUSSED WITH AND HE WOULD LIKE PATIENT TO STAY ON CLEARS UNTIL MORNING WHEN LABS ARE REASSESSED. PATIENT AGREES.
--- NOTE | 2021-10-26 21:59 | NUR ---
PATIENT'S IV ABX FINISHED. IV SITE SL. PATIENT PROVIDED WITH PRN PAIN MEDS FOR 8/10 PAIN IN HIS LEGS AND BACK. PATIENT CONTINUES TO HAVE OCCATIONAL LOOSE STOOLS, DARK BLACK IN COLOR.
--- NOTE | 2021-10-27 00:49 | NUR ---
PATIENT UP AND DOWN TO THE BSC TO HAVE BM AND VOID. PATIENT TOLERATES WELL AND HAS LESS BM OUT. MOSTLY LIQUID AND DARK BROWN/BLACK. PATIENT DENIES ABD PAIN OR NAUSEA. NO SIGNS OF HYPOVOLEMIA; HR 60-70'S AT REST AND WITH ACTIVITY. PATIENT NOT DIZZY OR LIGHTHEADED. ACTIVITY INDUCED SOB WHICH IS CHRONIC.
--- NOTE | 2021-10-27 01:30 | NUR ---
PATIENT PROVIDED WITH PRN PAIN MEDS AND MELETONIN. PATIENT IS HAVING LESS BM OUT NOW. PAIN IN HIS RIGHT LEG AND BACK.
--- NOTE | 2021-10-27 04:00 | NUR ---
patient has been up and down to the bsc multiple times to void and has liquid stool. patient reports increased cramping now and feeling more worn out. limited sleeping inbetween these episodes. patient is tolerating well. no nausea with the cramping, but prn zofran given with the prn pain meds prophylactically. warm blankets placed folded up on abd.
--- NOTE | 2021-10-27 06:43 | NUR ---
UPDATE PROVIDED TO AND . ORDERS FROM TO START PATIENT ON SOFT DIET AND WILLIAM AGREES. PATIENT INSISTENT ON EATING BREAKFAST. STOOL HAS BEEN BROWN IN COLOR AND MINIMAL. VS STABLE.
--- NOTE | 2021-10-27 07:30 | NUR ---
REPORT RECEIVED FROM MARVIN BYRNES. PT RESTING IN BED, AWAKE, HAS JUST GOTTEN DONE USING URINAL.
--- NOTE | 2021-10-27 08:06 | NUR ---
IN TO SEE PT AND DISCUSS PLAN FOR THE DAY. PT HAS JUST FINISHED EATING BREAKFAST SITTING UP AT BEDSIDE, STILL HUNGRY WANTING MORE FOOD.
--- NOTE | 2021-10-27 08:15 | CONS ---
[facility] [address], [place] [address] Signed DATE OF CONSULTATION: 10/26/2021 REFERRING PHYSICIAN: Ferdinand Chand M.D. CHIEF COMPLAINT: Anemia. HISTORY OF PRESENT ILLNESS: Moises is a 71-year-old [place] gentleman, who was here from October 20 through the with an upper GI bleed. He underwent his upper endoscopy on the with Dr. Parks. He has a hiatal hernia associated with a Sukhi ulcer. Because multiple clips were deployed without success. Therefore, hemo spray was utilized. It does not mention any injection. That seemed to work out well. He was allowed to go home. At home, he had a black melenic stool, followed by black liquid diarrhea and then some red blood as well. He was feeling a little dizzy. He decided to come back to the emergency room for evaluation. He has been hemodynamically stable in the emergency room and in the ICU on the Internal Medicine Service. Apparently, he got two more units of packed red blood cells. His hemoglobin of 7.4, now it is 8.8. Mean cell volume is good 89. BUN is okay at 16, creatinine is good at 0.78. Liver function tests are negative. Albumin is little low 2.4. COVID was negative. INR is good at 1.1 and his PTT is good at 36. He does have COPD, which he attributes to his time in [place]. He said he has never smoked. He has rather significant wheezing and just has albuterol metered-dose inhaler. He said he has not seen his lung doctor in several years. We did talk at some length and he wants to be a full code, but no heroic measures. He understands he is at increased risk because of his COPD. PAST MEDICAL HISTORY: Hypertension, BPH, bowel obstruction for reasons he is unsure, and his COPD. PAST SURGICAL HISTORY: Includes an inguinal hernia, a laparotomy with lysis of adhesion, he had adhesions and possible small bowel resection, but he is not sure. He had shrapnel removed from his right lower extremity. He had a left total knee replacement. He has been through a lumbar fusion, but cannot recall of any metal in his back. SOCIAL HISTORY: He says he does not smoke or drink. He is , but does have a daughter, Sharona Richards at [phone]. He has to have a cane or walker to ambulate. He said he can only ambulate 10 or 20 feet short of breath and asked to stop. He prefers the [facility]. He goes to the [facility] in [place], [place] with Dr. Núñez. FAMILY HISTORY: Electronically Signed By: FLEICITA ALARCON MD 10/27/21 0815 PATIENT NAME: MOISES BHATIA CONSULTATION DATE OF : 46 REPORT #: [id number] PHYSICIAN: FELICITA ALARCON MD PCP: OTHER PCP REPORT IS CONFIDENTIAL AND NOT TO BE RELEASED WITHOUT AUTHORIZATION [facility] [address] [place] [id number] Signed None. REVIEW OF SYSTEMS: He had 10 systems reviewed. He told me about his injuries. ALLERGIES: Penicillin causes edema. MEDICATIONS: Protonix, clarithromycin, and Flagyl. At discharge, aspirin, albuterol, and lisinopril. PHYSICAL EXAMINATION: VITAL SIGNS: Blood pressure 115/68, heart rate 66, respiratory rate 17, and temperature is 98.8. He is 96% on 2 L nasal cannula. He is 6 feet tall 122 kg. GENERAL: Moises is a 71-year-old gentleman lying supine in his ICU bed, watching TV. He is clearly short of breath just talking with me. However, he is a good historian and has good insight. LUNGS: Moderately distant. In fact, I have really not able to hear his heart today. We are currently getting an EKG. ABDOMEN: Moderately obese, but it is soft and nontender. He has an incisional hernia just above his umbilicus. It is large and quite reducible. LABORATORY DATA: His white blood count 9.2; hemoglobin was 7.4, it is up to 8.8 after 2 units packed red blood cells; mean cell volume is 89. BUN 16, creatinine 0.78. LFTs negative. Albumin is 2.4. COVID is negative. INR 1.1, PTT is 36. RADIOGRAPHIC STUDIES: None. ASSESSMENT/PLAN: Moises is a 71-year-old gentleman, who returns as above. He may not have any active bleeding, but nevertheless, it is mccann, we go ahead and repeat upper endoscopy at this time. We reviewed upper endoscopy in detail. He knows there is risk including, but not limited to gas bloating, crampy abdominal pain, bleeding, perforation requiring surgery, and missed diagnosis. We did discuss his code status in detail with respect to his COPD. He said he wants to be a full code, but nothing heroic. He does not want prolonged intubation, ventilator, or tube feeds. Interestingly, he did ask me if he can eat just as I was leaving the room. We also reviewed the need for monitored anesthesia care with propofol. He has expressed understanding and would like to proceed. Electronically Signed By: FELICITA ALARCON MD 10/27/21 0815 PATIENT NAME: MOISES BHATIA CONSULTATION DATE OF : 46 REPORT #: [id number] PHYSICIAN: FELICITA ALARCON MD PCP: OTHER PCP REPORT IS CONFIDENTIAL AND NOT TO BE RELEASED WITHOUT AUTHORIZATION [address] [place], [place] [address] Signed Felicita Alarcon MD ALB/MODL /[id number] cc: Felicita Alarcon MD Patient Chart Copies: FELICITA ALARCON MD ~ Electronically Signed By: FELICITA ALARCON MD 10/27/21 0815 PATIENT NAME: MOISES BHATIA CONSULTATION DATE OF : 46 REPORT #: [id number] PHYSICIAN: FELICITA ALARCON MD PCP: OTHER PCP REPORT IS CONFIDENTIAL AND NOT TO BE RELEASED WITHOUT AUTHORIZATION
--- NOTE | 2021-10-27 08:15 | OR ---
[facility] [address] [place], [place] [address] Signed DATE OF OPERATION: 10/26/2021 SURGEON: Felicita Alarcon MD Upper endoscopy report. PREOPERATIVE DIAGNOSES: 1. Recent gastric ulcer (Sukhi ulcer). 2. Hiatal hernia. 3. Anemia. 4. Melena. 5. Dizziness and fatigue. POSTOPERATIVE DIAGNOSES: 1. Moderate sized gastric nonbleeding ulcer on the lesser curve of cardia. 2. Moderate-sized hiatal hernia. PROCEDURE: EGD without biopsies. ESTIMATED BLOOD LOSS: None. FINDINGS: No recent or old blood in stomach. A single clip was found on the lesser curve of the stomach. a moderate-size nonbleeding ulcer. INDICATIONS: Moises is a 71-year-old gentleman, who came in was admitted on October 20 through the . On the , Dr. Parks was able to do his upper endoscopy. He had had hematemesis at that time. He had a moderate-sized ulcer up on the lesser curve of the cardia. Because of the angle was very difficult to deploy the clips, no mention of injection was noted. He had Hemospray placed over that area. The rest of the stomach was fine. He was kept in the hospital, seemed to be doing fine, so he was left home on the . At home, he said he was feeling dizzy and fatigued. However, he has COPD from his time in [place]. He has to have a cane or walker to ambulate. He can only ambulate 10 to 20 feet before he stops because of the shortness of breath. He did get 2 units of blood on his previous admission. He passed some solid melenic stool followed by dark liquid melenic stool and then he thought he saw some bright red blood. He decided to come back to the emergency room for evaluation. He has been hemodynamically stable in Electronically Signed By: FELICITA ALARCON MD 10/27/21 0815 PATIENT NAME: MOISES BHATIA OPERATIVE REPORT DATE OF : 46 REPORT #: [id number] PHYSICIAN: FELICITA ALARCON MD PCP: OTHER PCP REPORT IS CONFIDENTIAL AND NOT TO BE RELEASED WITHOUT AUTHORIZATION [facility] [address] [place], [place] [address] Signed the emergency room as well as the ICU. He did get 1 unit of blood on this admission. His hemoglobin was 7.4, developed 8.8. BUN was fine at 16. The rest of his labs are fine. Albumin is a low at 2.4. I have been asked to see him as a general surgeon on-call. I had met with Juan in the ICU. He was watching TV. I reviewed the above findings with him. I explained it would be mccann to repeat the upper endoscopy at this time to just see if his ulcer was bleeding. Given his advanced medical issues, of course, he needs monitored anesthesia care. We also used monitored anesthesia care to protect the airway and these acute situations. He understands the nature of the test. There is risk including, but not limited to gas bloating, crampy abdominal pain, bleeding, perforation requiring surgery, and missed diagnosis. He is also at high risk just based on his emphysema. He had expressed understanding and wished to proceed. PROCEDURE NOTE: Moises was taken into our endoscopy suite and placed in a supine semi-recumbent position. He was placed under general endotracheal tube anesthesia. The adult gastroscope was introduced and advanced under direct visualization of camera without difficulty. We went through his moderate-sized hiatal hernia and out into the stomach. We did not see any old or new blood. We passed through the pyloric bulb and down into the third portion of the duodenum. The duodenum and pyloric bulb were completely without any old or new blood. There were no inflammatory changes. No ulcerations in the pyloric bulb. The antrum was examined carefully and there were no ulcerations. The incisura was unremarkable. The fundus was unremarkable. However, when we retroflex the scope, we could easily see his moderate-sized hiatal hernia. As we examined the hiatal hernia, we realized that his gastric ulcer was out on the lesser curve of the cardia. Next was a single clip still deployed. The ulcer is beginning to heal. It was nonbleeding. We took multiple pictures throughout for photodocumentation. After this, the gas was suctioned out and the colonoscope was removed. His GE junction, distal esophagus, middle esophagus, and upper esophagus were unremarkable. Felicita Alarcon MD ALB/MODL /[id number] cc: Felicita Alarcon MD Electronically Signed By: FELICITA ALARCON MD 10/27/21 0815 PATIENT NAME: MOISES BHATIA OPERATIVE REPORT DATE OF : 46 REPORT #: [id number] PHYSICIAN: FELICITA ALARCON MD PCP: OTHER PCP REPORT IS CONFIDENTIAL AND NOT TO BE RELEASED WITHOUT AUTHORIZATION [facility] [address] [facility] [place], [place] [address] Signed Wan Núñez MD Copies: FELICITA ALARCON MD, DELWYN MD ~ Electronically Signed By: FELICITA ALARCON MD 10/27/21 0815 PATIENT NAME: MOISES BHATIA OPERATIVE REPORT DATE OF : 46 REPORT #: [id number] PHYSICIAN: FELICITA ALARCON MD PCP: OTHER PCP REPORT IS CONFIDENTIAL AND NOT TO BE RELEASED WITHOUT AUTHORIZATION
--- NOTE | 2021-10-27 08:56 | NUR ---
DR ALARCON IN TO TALK WITH PT
--- NOTE | 2021-10-27 11:00 | NUR ---
PLAN TO D/C THE PT HOME TODAY AFTER ONE MORE UNIT OF PRBC'S. AWAITING BLOOD FROM THE LAB. PT AWARE AND AGREEABLE.
--- NOTE | 2021-10-27 11:48 | NUR ---
PT AWAITING BLOOD, SAT UP TO BEDSIDE TO EAT LUNCH.
--- NOTE | 2021-10-27 12:15 | NUR ---
IN ROOM TO ADMINISTER UNIT OF BLOOD. VS STABLE PRE INFUSION AND FIRST 15 MINS. CALL LIGHT WITHIN REACH.
--- NOTE | 2021-10-27 14:00 | NUR ---
BLOOD HAS COMPLETED INFUSING, PLAN TO DISCHARGE PT, AWAITING HIS DAUGHTER WHO IS GIVING HIM A RIDE HOME.
--- NOTE | 2021-10-27 15:26 | NUR ---
PT DISCHARGED TO HOME WITH DAUGHTER. INSTRUCTIONS GIVEN AND IVS DC'D.
--- NOTE | 2021-10-27 15:53 | EKG ---
[facility] [address] [facility] [place] [address] Signed Normal sinus rhythm Normal ECG No previous ECGs available Confirmed by NELLI DOMINGUEZ MD ([id number]) on 10/27/2021 3:53:11 PM Electronically Signed By: NELLI DOMINGUEZ MD 10/27/21 1553 PATIENT NAME: MOISES BHATIA Electrocardiogram DATE OF : 46 PHYSICIAN: NELLI DOMINGUEZ MD REPORT #: [id number] REPORT IS CONFIDENTIAL AND NOT TO BE RELEASED WITHOUT AUTHORIZATION
== END 2021-10-27 15:15 | disposition home or self-care (01) ==
LOC: ED 17:22 → CCU 17:23
PROVIDERS: Colon & Rectal Surgery; ADMIT Family Medicine; ATTEND Family Medicine
PROC: 0DJ08ZZ Inspection of Upper Intestinal Tract, Via Natural or Artificial Opening Endoscopic (ICD-10-PCS; principal; 2021-10-26 11:30)
DX: K25.4 Chronic or unspecified gastric ulcer with hemorrhage (principal); K44.9 Diaphragmatic hernia without obstruction or gangrene; I10 Essential (primary) hypertension; M79.604 Pain in right leg; J44.9 Chronic obstructive pulmonary disease, unspecified; Z96.652 Presence of left artificial knee joint; Z98.1 Arthrodesis status; Z88.0 Allergy status to penicillin; Z20.822 Contact with and (suspected) exposure to COVID-19
CPT/HCPCS: 36415; 80053; 83735; 85025; 85060; 85610; 85730; 86850; 86900; 86901; 86922; 87502; 93005; 93010; 94640; C9113; C9803; J0330; J0690; J1100; J1170; J2405; J2704; J2765; J7040; P9016; U0003

== ENCOUNTER 2022-01-03 09:56 | Day surgery (SDC) | payer OTHER ==
[~2022-01-03] VITALS: Ht 182.9 cm; Wt 118.2 kg
[~2022-01-03 09:56] MED LIST changes: +METOPROLOL TART25 MG PO; +METRONIDAZOLE500 MG PO; +OXYCODONE-ACET1 EAC3 PO; +SIMVASTATIN40 MG PO; +SPIRIVA RESPIMAT4 G1 INH; +VENTOLIN HFA18 GM INH
--- NOTE | 2022-01-03 10:29 | NUR ---
1000 PT WALKED IN WITH AUDIBLE WHEEZES HAVING TROUBLE CATCHING HIS BREATH, HE USED HIS INAHLER 2 PUFFS, WITH NO IMPROVEMENT. AMY STARKEY NOTIFIED. NEB TREATMENT GIVEN, PT COMPLAINS OF PAIN TO BACK FROM OLD INJURIES. 100MCG OF FENTANYL GIVEN BY AMY STARKEY. 1035 PT SOUNDS LIKE HE IS BREASTHING BETTER AND PAIN IS BETTER ALSO.
[2022-01-03] MEDS ORDERED: HYDROCHLOROTH12.5 M1 PO (10:45)
[2022-01-03] MEDS ORDERED: VITAMIN D3125 MC1 PO (10:45)
[2022-01-03] MEDS ORDERED: COMBIVENT RESPIM4 GM MT (10:49)
--- NOTE | 2022-01-03 11:01 | NUR ---
O2 TURNED DOWN TO 2L PT MAINTAINS SATS AT 100%
--- NOTE | 2022-01-03 11:03 | NUR ---
SATS 97% ON 2L NOW
--- NOTE | 2022-01-03 13:06 | NUR ---
01/03/22 1306 Sheets,Mely 1157 PT ARRIVED TO PACU AUDIBLE WHEEZING NOTED AND MASS SPECTROMETRY SPECIALIST AWARE. PT WAKES TO TACTILE STIMULI AND REPORTS BACK PAIN. 1203 MD AT BEDSIDE TALKING TO PT. 1205 PT REQUEST TO SIT ON EDGE OF BED, PT COUGHING AND REPORTS DIZZINESS WITH SITTING UP, RN WILL CONTINUE TO MONITOR. SPUTUM NOTED. 1212 PT REQUESTS TO LAY BACK DOWN AND WARM BLACKET GIVEN. 1220 PT SITTING BACK UP IN BED AND REPORTS FEELING BETTER. PT SIPPING WATER AND DENIES CONCERNS. 1236 DC INSTRUCTIONS GIVEN AND ALL QUESTIONS ANSWERED. PAPERWORK WITH RX GIVEN. PT DRESSED HIM SELF AND DC VIA WC.
--- NOTE | 2022-01-04 09:46 | OR ---
[facility] [place] [facility] [address] [place], [place] [address] Signed DATE OF OPERATION: 01/03/2022 SURGEON: Amy Lee MD PREOPERATIVE DIAGNOSES: 1. History of GI bleed with collar ulcer (Sukhi ulcer) associated with hiatal hernia October 21, 2021. 2. Severe and advanced COPD and other medical problems. POSTOPERATIVE DIAGNOSES: 1. Hiatal hernia without evidence of collar ulcer. 2. Diffuse gastritis. PROCEDURE: Esophagogastroduodenoscopy with biopsy. ANESTHESIA: Intravenous sedation, propofol infusion, Nivia Vasquez CRNA. INDICATION: This obese 71-year-old Stateless man was evaluated in October with upper endoscopy for GI bleeding and anemia and found to have a collar ulcer associated with hiatal hernia. He was treated intensively, medically and recovered. He is generally symptom-free currently. He has numerous medical comorbidities including chronic reactive airways disease and perpetual wheezing. He is admitted at this time to undergo upper endoscopy to assure that there has been healing of any ulceration and assess the status of his GI tract. He is generally symptom-free. He understands the risk of bleeding, infection, and perforation related to upper endoscopy and wished to proceed. FINDINGS: Anesthesia was well managed with intravenous sedation by the nurse ldr. The esophagus and duodenum were normal. The stomach had diffuse gastritis. There was definitely hiatal hernia but there was no evidence of persistent gastric ulcer (collar ulcer). DESCRIPTION OF PROCEDURE: The patient was brought to the endoscopy suite and placed in the lateral decubitus position, given intravenous sedation with full cardiopulmonary monitoring. Ancef was given preoperatively related to joint replacement history. A bite block was placed. Notably, the patient had bronchodilator therapy prior to the procedure. After satisfactory intravenous sedation, an Olympus video upper endoscope was passed in the Electronically Signed By: AMY LEE MD 01/04/22 0946 PATIENT NAME: MOISES BHATIA OPERATIVE REPORT DATE OF : 46 REPORT #: [id number] PHYSICIAN: AMY LEE MD PCP: HANH JESUS MD REPORT IS CONFIDENTIAL AND NOT TO BE RELEASED WITHOUT AUTHORIZATION [facility] [address], [place] [address] Signed hypopharynx. The vocal cords appeared normal. There was no evidence of excess secretions. The scope was advanced to the esophagus, throughout its length it was normal. Scope was passed to the stomach, which was insufflated with air. Diffuse plaque like gastritis was noted throughout including the antrum and body of stomach. The pylorus was normal and scope was passed through into the duodenum. There was bile within the duodenum, but no sign of ulceration and the scope was withdrawn and biopsies taken of the antrum for both SUELLEN and pathologic testing. Retroflexed view was undertaken showing the redundant folds of hiatal hernia to be obvious, but no evidence of ulceration and thus no Sukhi or collar ulcer. The scope was straightened and withdrawn to the distal esophagus. As the mucosa was normal, I did not biopsy it there. The scope was withdrawn fully and remaining esophagus was normal. Scope was removed and the patient was taken to the recovery room in good condition. CONCLUDING DIAGNOSIS: Diffuse gastritis. No evidence of ulcer. PLAN: In his particular situation, I would recommend persistent PPI use, Prilosec 20 mg daily and if possible Carafate 1 g p.o. b.i.d. He will return to the ongoing care of Dr. Jesus. MD JEREMY Alston/MODL /[id number] cc: Hanh Jesus MD Copies: HANH JESUS MD ~ Electronically Signed By: AMY LEE MD 01/04/22 0946 PATIENT NAME: MOISES BHATIA OPERATIVE REPORT DATE OF : 46 REPORT #: [id number] PHYSICIAN: AMY LEE MD PCP: HANH JESUS MD REPORT IS CONFIDENTIAL AND NOT TO BE RELEASED WITHOUT AUTHORIZATION
--- NOTE | 2022-01-08 15:00 | PATH ---
[facility] [address] [place], [place] [address] Signed SPECIMEN(S): A BODY BIOPSY SPECIMEN SOURCE: A. BODY BIOPSY CLINICAL HISTORY: History of gastric ulcer (Alberto/Sukhi) ulceration; hiatal hernia; peptic disease. Post: Chronic gastritis FINAL PATHOLOGIC DIAGNOSIS: Body biopsy: - Benign gastric-type mucosa with focal mild chronic inflammation. - Negative for evidence of Helicobacter organisms on routine HE-stained sections. JVR:[facility]:C2NR MICROSCOPIC EXAMINATION: Histologic sections of all submitted blocks are examined by light microscopy. These findings, together with the gross examination, support the pathologic diagnosis. GROSS DESCRIPTION: The specimen, labeled "Moises Garcia," and designated on the requisition "body biopsy," is received in formalin and consists of one miguel soft tissue fragment that measures 0.7 cm in greatest dimension. The specimen is entirely submitted in cassette (A1). FB (under the direct supervision of a pathologist) The Gross Description was prepared using a voice recognition system. The report was reviewed for accuracy; however, sound-alike word errors, addition and/or deletions may occur. If there is any question about this report, please contact Client Services. PERFORMING LABORATORY: The technical component was performed by [facility], [address] [place] [id number] (CLIA# [id number]). The professional interpretation was performed by [facility], [facility], [address] [place] [address] (CLIA#: [id number]). Diagnostician: Shamar Schwartz MD Pathologist PATIENT NAME: MOISES GARCIA PATHOLOGY DATE OF : 46 REPORT #: [id number] PHYSICIAN: JORGE PATHOLOGY PCP: HANH JESUS MD REPORT IS CONFIDENTIAL AND NOT TO BE RELEASED WITHOUT AUTHORIZATION [address] [place] [address] Signed Electronically Signed 01/08/2022 Copies: ~ PATIENT NAME: MOISES GARCIA PATHOLOGY DATE OF : 46 REPORT #: [id number] PHYSICIAN: JORGE PATHOLOGY PCP: HANH JESUS MD REPORT IS CONFIDENTIAL AND NOT TO BE RELEASED WITHOUT AUTHORIZATION
== END 2022-01-03 12:36 | disposition home or self-care (01) ==
LOC: DS 09:56 → OPS 09:56 → DS 10:00 → OPS 11:00
PROVIDERS: ATTEND Surgery
PROC: 0DB68ZX Excision of Stomach, Via Natural or Artificial Opening Endoscopic, Diagnostic (ICD-10-PCS; principal; 2022-01-03 12:30)
DX: K44.9 Diaphragmatic hernia without obstruction or gangrene (principal); K29.50 Unspecified chronic gastritis without bleeding; J44.9 Chronic obstructive pulmonary disease, unspecified; Z88.0 Allergy status to penicillin; Z87.11 Personal history of peptic ulcer disease; Z96.652 Presence of left artificial knee joint; Z87.891 Personal history of nicotine dependence
CPT/HCPCS: J0690; J2704; J3010

== ENCOUNTER 2022-05-10 18:07 | Emergency (ER) | payer OTHER ==
[~2022-05-10] VITALS: Ht 182.9 cm; Wt 120.7 kg
[~2022-05-10 18:07] MED LIST changes: +COMBIVENT RESPIM4 GM MT; +HYDROCHLOROTH12.5 M1 PO; +VITAMIN D3125 MC1 PO
== END 2022-05-10 20:55 | disposition home or self-care (01) ==
LOC: ED 18:07
DX: J44.1 Chronic obstructive pulmonary disease with (acute) exacerbation (principal); I10 Essential (primary) hypertension; Z88.0 Allergy status to penicillin; Z79.899 Other long term (current) drug therapy
CPT/HCPCS: 36415; 71045; 80053; 83735; 83880; 84484; 85025; 96374; 99285-25; J2930

== ENCOUNTER 2023-01-26 11:51 | Inpatient (IN) | payer OTHER ==
[~2023-01-26] VITALS: Ht 182.9 cm; Wt 117.7 kg
[~2023-01-26 11:51] MED LIST changes: -HYDROCHLOROTH12.5 M1 PO; +MAXZIDE 37.5 MG-1 EA PO; -OXYCODONE-ACET1 EAC3 PO; +PERCOCET 5-3251 EACH PO; -SPIRIVA RESPIMAT4 G1 INH; +STIOLTO RESPIMAT4 GM INH
[2023-01-26 12:11] LABS: BASOPHILS 0.6 % (0-2); EOSINOPHILS 5.2 % (0-6); HEMATOCRIT 40.9 % (35.0-50.0); HEMOGLOBIN 12.6 g/dL (12.0-18.0); LYMPHOCYTES 27.4 % (24-44); MCH 24.4 (27-36); MCHC 30.8 g/dl (30-36); MONOCYTES 9.8 % (0-12); PLATELET COUNT 163 K/uL (140-440); RBC 5.18 M/ul (4.3-5.7); RDW 17.8 (10.5-15.0)
[2023-01-26 12:21] LABS: PARTIAL THROMBOPLASTIN TIME 32.5 Sec (22.9-41.3)
[2023-01-26 12:22] LABS: INR 1.11 (0.80-1.30); PROTIME 13.8 Sec (11.2-14.2)
[2023-01-26 12:32] LABS: ALBUMIN 3.4 g/dL (3.4-5.0); ALBUMIN/GLOBULIN RATIO 0.79 (1.1-2.4); BILIRUBIN, TOTAL 0.9 ng/dL (0.2-1.0); BUN/CREATININE RATIO 12.98 (6.0-28.6); CREATININE, SERUM 0.77 mg/dL (0.70-1.30); PROTEIN, TOTAL 7.7 g/dL (6.4-8.2)
[2023-01-26 14:58] VITALS: BP 167/94
--- NOTE | 2023-01-26 15:18 | NUR ---
PT ARRIVED FROM ER BY STRETCHER. PT UP TO RESTROOM WITH ONE PERSON ASSIST AND FWW. PT REPORTS HE USES A WALKER AT HOME. PT VOIDS WITH OUT ISSUE. 1 PERSON ASSIST BACK TO BED. PT SHORT OF BREATH AND WHEEZING WITH ACTIVITY AND EVEN WHILE RESTING IN BED. PT REPORTS 7-8/10 PAIN IN BACK AND LEGS THAT HE WOULD LIKE PAIN MEDICATION FOR. PT REPORTS HE TAKES TWO TABELTS OF 5/325 NORCO AT HOME UP TO [address] JUAREZ UPDATED AND NEW ORDERS PLACED. SEE MAR FOR MEDICATION GIVEN. PT ALERT AND OREINTED TO ALL BUT DATE. PT REPORTS "A LITTLE BIT" OF DIZZINESS CONTINUES. PT REPORTS THE ROOM IS NOT SPINNING. PT CONTINUES TO STATE DIZZINESS IS BETTER WITH EYES CLOSED. DENIES NUMBNESS AND TINGLING IN ALL EXTREMITIES HOWEVER PT IS UNABLE TO ACCURATLY IDENTIFY TOES WHEN TOUCHED. EXPIRATORY WHEEZE HEARD THROUGHOUT ALL LUNG REINA. RR OF 24. PT DECLIENS TIME UP TO CHAIR OR TRIPOD POSITION AND IS ABLE TO LIE FLAT. DYSPNEA ON EXERTION EVIDENT. PT REMAINS ON 2L O2 BY NC, PT DENIES HOME OXYGEN USE. OXGYEN SATURATION CURRENTLY 94%. ROOM AIR TRIAL ATTEMPTED. PT MAINTINS OXGYEN SATURATION 90-94% ON ROOM AIR. PT LEFT ON ROOM AIR AT THIS TIME. EXPIRATORY WHEEZES NOT AUDIBLE FROM A DISTANCE WHEN PT IS RESTING. ABDOMEN SOFT AND NON TENDER. PT DENIES NASUEA. BOWEL TONES ACTIVE. UMBILICAL LUMP "ITS A HERNIA" PRESENT. SKIN GROSELY INTACT BUT FOR OCCATIONAL BRUISING. FALL PRECUATIONS REVEIWED WITH PT. MEDICATION GIVEN. NO ADDITIONAL REQUESTS OR COMPLAINTS. CALL LIGHT WITHIN REACH. BED RAILS UP.
--- NOTE | 2023-01-26 15:29 | NUR ---
1441 - THIS RN TO ER, RECEIVES VERBAL REPORT FROM FITZ LOPEZ. 1446 - PT ARRIVES TO MED-SURG FLOOR VIA GURNEY ESCORTED BY THIS RN. PT GETS SELF OUT OF GURNEY AND AMBULATES WITH SBA TO BATHROOM. VOIDS 250 MLS OF CLEAR YELLOW URINE. PT BACK TO BED, 2 LPM OF O2 IN PLACE VIA NC. SOB NOTED WITH ACTIVITY, RESOLVES WITH REST. DAUGHTER IN ROOM AT BEDSIDE. NON-SKID SOCKS DONNED. VS OBTAINED. 1525 - REPORT PROVIDED TO FITZ DIAZ.
--- NOTE | 2023-01-26 16:06 | NUR ---
PT CONTINUES RESTINGIN BED WITH HEAD OF BED AT 30 DEGREES. PT REPORTS PAIN IS IMPROVING NOW AT 4-5/10. PT DENIES NEED FOR ADDITIONAL PAIN MEDICAITON. PT FAILED ROOM AIR TRIAL DROPING TO 83% ON ROOM AIR. PT PLACED BACK ON 1L O2 BY IL WITH OXGYEN SATURATIONS CLIMBING BACK UP TO 92%. FAMILY REMAINS AT BEDSIDE. ICE WATER REFILLED. NO ADDITIONAL REQUESTS OR COMPLAINTS. CALL LIGHT WITHIN REACH. BED RAILS UP.
--- NOTE | 2023-01-26 16:32 | NUR ---
PT ADMITTED THIS SHIFT FOR VERTIGO AND COPD EXACERPATION. PT UP TO RESTROOM WITH 1 PERSON ASSIST AND FWW. PT IMPULSIVE AND UNAWARE OF SAFETY HAZARDS. PT TOELRATING 2GM SODIUM DIET WITH GOOD APPITITE. TELEMETRY MONITORING IN PLACE, NORMAL SINUS RYTHEM SO FAR THIS SHIFT WITH RATE 80-90'S. LUNG SOUNDS WHEEZEY THROUGHOUT, PT WEANED TO 1L O2 BY NC, CPOX IN PLACE. PT REPORTS DIZZINESS AT TIMES. EXPRIATRY WHEEZES AND CLIFFORD EVIDENT. UNBILICAL "HERNIA" SEEN. DEFORMITIES TO LEFT ANKLE PER PTS BASELINE. PT REPORTS CHRONIC BACK AND LEG PAIN, HOME MEDICATIONS STARTED WITH GOOD PAIN CONTROLL. PT VOIDIGN QUANITTY SUFFICIENT. PT HAS YET TO USE CALL LIGHT. BED/CHAIR ALARMS FOR SAFETY.
--- NOTE | 2023-01-26 17:14 | NUR ---
THIS RN TO ROOM TO CHECK ON PT. DINNER DELIVERED. HEAD OF BED ELEVATED TO 50 DEGREES FOR DINNER. PT DECLINES TIME UP TO CHAIR. PT REMAINS ON 1L O2 BY NC . OXGYEN SATUARTTIONS 88-92%. RT CALLED FOR BREATHING TREATEMENT. PT REPORTS PAIN HAS IMPROVED NOW 3/10 IN BACK AND LEGS. PT DENEIS NEED FOR ADDITIONAL PAIN MEDICATIONS. NO ADDITIONAL REQUESTS OR COMPLAINTS. CALL LIGHT WITHIN REACH. BED RAILS UP. BED ALARM ON.
[2023-01-26 18:02] VITALS: BP 131/85
--- NOTE | 2023-01-26 18:34 | NUR ---
THIS RN TO ROOM TO CHECK ON PT. PT RESTING WITH EYES CLOSED. RESPIRATIONS EVEN AND UNLABORED. OXYGEN SATURATION OF 92% ON 2L O2 BY NC. TELEMETRY MONITORING SHOWS NORMAL SINUS RYTHEM WITH RATE IN THE 80-90'S. BED RAILS UP. BED ALARM ON. CALL LIGHT WITHIN REACH. PT ALLOWED TO REST.
--- NOTE | 2023-01-26 19:30 | NUR ---
REPORT RECEIVED FROM FITZ KOCH. pt RESTING IN BED WITH EYES CLOSED. 2L OXYGEN BY NC IN PLACE, SPO2 92% WITH CPOX ON. BED ALARM ON.
[2023-01-26 20:19] VITALS: BP 138/87
--- NOTE | 2023-01-26 20:20 | NUR ---
pt AWAKE FOR NEB TREATMENT AT THIS TIME. ASSESSMENT COMPLETE. EXPIRATORY WHEEZES AUSCULTATED THROUGHOUT LUNG LOBES. SPO2 89-92% WITH 2L OXYGEN BY NC IN PLACE. SBA TO CHAIR WITH FWW. pt IMPULSIVE WITH WALKER USE. STATES UNABLE TO COMPLETE MRI QUESTIONNAIRE. REQUESTS DAUGHTER ANSWER QUESTIONS. CHAIR ALARM ON. CALL LIGHT AND PERSONAL SUPPLIES IN REACH.
--- NOTE | 2023-01-26 23:16 | NUR ---
CALL LIGHT ANSWERED. 1 PA/SBA TO BATHROOM USING WALKER AND BACK TO BED. PATIENT VOIDED UNMEASURED MISSED THE HAT. CPOX IS BACK ON. GRAPE JUICE PROVIDED PER PATIENT. NO OTHER NEEDS AT THIS TIME.
--- NOTE | 2023-01-26 23:35 | NUR ---
pt RESTING IN BED, 4L OXYGEN BY NC IN PLACE, SPO2 WNL. pt COUGHING AFTER BACK TO BED FROM AMBULATING TO RESTROOM. BED ALARM ON. CALL LIGHT IN REACH.
[2023-01-26 23:55] VITALS: BP 123/71
--- NOTE | 2023-01-27 00:08 | NUR ---
CALL LIGHT ANSWERED. pt COMPLAINS OF PAIN IN BACK, 10/27. PRN MEDICATIONS ADMINISTERED. pt SOB, COUGHING. SPO2 88% WITH 4L OXYGEN BY NC IN PLACE. RT PHONED, IN ROOM FOR PRN BREATHING TREATMENT. PO SNACK PROVIDED WITH ADMINISTRATION OF PO MEDICATIONS PER REQUEST.
--- NOTE | 2023-01-27 00:44 | NUR ---
CPOX ALARMING, pt EATING PUDDING, NOT GOOD WAVEFORM ON MONITOR. SPO2 INCREASES TO >90% WITH 4L OXYGEN BY NC IN PLACE. pt WATCHING TV. OCCASIONAL DRY HACKING COUGH.
--- NOTE | 2023-01-27 01:15 | NUR ---
CPOX ALARMING, SPO2 86% ON CPOX. TITRATED TO 5L OXYGEN BY NC. SPO2 INCREASES TO 89-90%. pt WHEEZING, DUSKY. STATES "I'M STRUGGLING, I WANT TO GO HOME TOMORROW". RR 22. LABORED BREATHING, DRY COUGH. PHONE CALL TO MD. NEW ORDER RECEIVED AND REPEATED BACK TO VERIFY. EMAR UPDATED.
[2023-01-27 01:51] VITALS: BP 143/74
--- NOTE | 2023-01-27 01:57 | NUR ---
IN ROOM FOR MEDICATION ADMINISTRATION. VS COMPLETE. SPO2 91% WITH 5L OXYGEN BY NC IN PLACE. IV MEDICATION ADMINISTERED WNL. EDUCATION PROVIDED. LUNG SOUNDS TIGHT, WHEEZES AUSCULTATED THROUGHOUT ALL LOBES. pt CONTINUES TO HAVE DRY COUGH. CALL LIGHT IN REACH. DENIES TOILETING OR ADDITIONAL NEEDS.
--- NOTE | 2023-01-27 02:15 | NUR ---
CALL LIGHT ANSWERED. pt REQUESTING TO SIT UP, SOB. PRN NEB TREATMENT ADMINISTERED. RT NOTIFIED. pt BACK IN BED, SPO2 92% WITH 5L OXYGEN BY NC IN PLACE. CALL LIGHT IN REACH.
--- NOTE | 2023-01-27 05:30 | NUR ---
SUPPORT REPRESENTATIVE IN ROOM. pt REQUESTS PRN PAIN MEDICATION. REFUSES TYLENOL AVAILABLE AT THIS TIME. "WHEN CAN I GO HOME". DISCUSSED OXYGEN NEEDS AT THIS TIME, PLAN OF CARE WITH pt. pt RATES PAIN 9/10 IN BACK. OFFERED ASSISTANCE WITH REPOSITIONING, pt DENIES NEEDS. 5L OXYGEN BY NC IN PLACE. CALL LIGHT IN REACH.
[2023-01-27 05:32] VITALS: BP 135/70
[2023-01-27 05:36] LABS: HEMATOCRIT 36.4 % (35.0-50.0); HEMOGLOBIN 11.5 g/dL (12.0-18.0); LYMPHOCYTES 3.8 % (24-44); MCH 24.9 (27-36); MCHC 31.7 g/dl (30-36); MCV 78.5 fl (81-99); MONOCYTES 3.2 % (0-12); PLATELET COUNT 142 K/uL (140-440); RBC 4.64 M/ul (4.3-5.7); RDW 17.4 (10.5-15.0)
--- NOTE | 2023-01-27 05:50 | EKG ---
[facility] [address] [facility] [place] [address] Signed Normal sinus rhythm Left axis deviation Minimal voltage criteria for LVH, may be normal variant ( R in aVL ) Abnormal ECG When compared with ECG of 05-OCT-2022 14:15, No significant change was found Confirmed by PATEL VIDAL MD ([id number]) on 01/27/2023 5:50:30 AM Electronically Signed By: PATEL VIDAL 01/27/23 0550 PATIENT NAME: MOISES BHATIA Electrocardiogram DATE OF : 46 PHYSICIAN: PATEL VIDAL REPORT #: [id number] REPORT IS CONFIDENTIAL AND NOT TO BE RELEASED WITHOUT AUTHORIZATION
[2023-01-27 05:56] LABS: ANION GAP 9.7 (7-21); BUN/CREATININE RATIO 14.28 (6.0-28.6); CALCIUM 8.4 mg/dL (8.5-10.1); CREATININE, SERUM 0.98 mg/dL (0.70-1.30); POTASSIUM 4.7 mmol/L (3.5-5.1)
--- NOTE | 2023-01-27 06:07 | NUR ---
PHONE CALL TO , NOTIFIED pt REPORTS 10/27 BACK PAIN. REQUESTING PRN OXYCODONE. TELEPHONE ORDER TO GIVE DOSE EARLY AT THIS TIME, X 1. REPEATED BACK TO VERIFY.
--- NOTE | 2023-01-27 06:19 | NUR ---
pt STATES "THAT'S RIGHT I DO TAKE PAIN MEDS THREE TIMES A DAY". PRN PAIN MEDICATION ADMINISTERED. pt COMPLAINS OF BACK HURTING MORE IN HOSPITAL BED. PO SNACK PROVIDED WITH PILLS. CALL LIGHT IN REACH. SPO2 90-93% WITH 5L OXYGEN BY NC IN PLACE.
--- NOTE | 2023-01-27 06:35 | NUR ---
CALL LIGHT ANSWERED. SBA TO RESTROOM WITH FWW. pt COMPLAINS OF SHORTNESS OF BREATH SITTING UP. VERBALIZES UNDERSTANDING TO USE CALL LIGHT WHEN FINISHED.
--- NOTE | 2023-01-27 07:01 | NUR ---
IN ROOM TO FIX LEAD ON TELE. pt RESTING IN BED WATCHING TV. DENTURES AND PASTE PROVIDED TO pt. 5L OXYGEN BY NC IN PLACE, SPO2 88-92%.
--- NOTE | 2023-01-27 07:11 | NUR ---
VERBAL REPORT RECEIVED FROM FITZ KAUR. PT RESTS IN BED WITH EYES CLOSED, O2 IN PLACE VIA NC AT 5 LPM, PT SATS 92%.
--- NOTE | 2023-01-27 09:40 | NUR ---
Spoke with Juan. He cont. to live in an apartment. His daughter lives in the same apartment complex with her four sons, 12, 13, 14, and 15. Per pt grandsons spend a large amount of time with him daily. He cooks for them. Daughter assists him whenever needed. Pt has DME and denies need for further. He also states [facility] and [facility] when needed. [facility] Pt denies needs and plans on dc to home when cleared. He is financially ok and does not use food stamps or [employer] for assistance at this time.
[2023-01-27 10:50] VITALS: BP 124/72
--- NOTE | 2023-01-27 12:21 | NUR ---
PT SITS UP IN RECLINER, WATCHES TV, CALL LIGHT IN REACH. NO REQUESTS AT THIS TIME.
[2023-01-27 14:15] VITALS: BP 140/93
--- NOTE | 2023-01-27 14:23 | NUR ---
UR NOTE [facility] CHRONIC OBSTRUCTIVE PULMONARY DISEASE (ISC) INPATIENT 01/26/23 MET CLINICAL INDICATIONS FOR ADMISSION TO INPATIENT CARE GL DAY 1
--- NOTE | 2023-01-27 14:49 | NUR ---
PT RESTS WITH EYES CLOSED IN RECLINER, CPOX IN PLACED, SATS 91%.
--- NOTE | 2023-01-27 17:38 | NUR ---
PT SITS UP IN BED, WATCHES TV, VISITS WITH FAMILY IN ROOM, EATS 75% OF DINNER, TOLERATES THIS WELL. PT SATS 91% ON 5 LPM NC. WHEEZES IN LLL HAVE IMPROVED ONLY HEARD OCCASSIONALLY ON AUSCULTATION. PT REPORTS HE FEELS THAT HIS WORK OF BREATHING HAS IMPROVED.
[2023-01-27 17:54] VITALS: BP 149/86
--- NOTE | 2023-01-27 18:45 | NUR ---
PT SATS 87-89% ON RA. 1LPM O2 APPLIED VIA NC. IS ENCOURAGED.
--- NOTE | 2023-01-27 19:20 | NUR ---
pt RESTING IN BED AWAKE, SPO2 92-93% WITH 5L OXYGEN BY NC IN PLACE. pt DENIES NEEDS. WORK OF BREATHING NOTED WITH SPEAKING. CALL LIGHT IN REACH.
[2023-01-27 20:19] VITALS: BP 136/85
--- NOTE | 2023-01-27 20:30 | NUR ---
RT OUT OF ROOM AFTER NEB TREATMENTS. O2 TITRATED TO 3L OXYGEN BY RN, SPO2 REMAINS 91-92%. CPOX ON. RT NOTIFIED. ASSESSMENT COMPLETE. IV SITES SL WNL. pt HAS CALL LIGHT IN REACH. DENIES TOILETING NEEDS.
--- NOTE | 2023-01-27 21:20 | NUR ---
CALL LIGHT ANSWERED. SBA TO RESTROOM FOR VOID WITH FWW. pt USES CALL LIGHT WHEN FINISHED. FIELD ASSESSOR SINTA IN ROOM ASSISTING pt BACK TO BED.
--- NOTE | 2023-01-27 21:42 | NUR ---
pt COMPLAINS OF 9/10 PAIN IN BACK. PRN PAIN MEDICATION ADMINISTERED. NOTED pt'S LAST BM 01/24/23. pt STATES TAKES MIRALAX AT HOME, NIO ORDER PLACED AT THIS TIME AND ADMINISTERED. pt SITTING UP AT SIDE OF BED, SPO2 91-92% WITH 3L OXYGEN BY NC IN PLACE. CALL LIGHT IN REACH.
--- NOTE | 2023-01-27 22:38 | NUR ---
CALL LIGHT ANSWERED. pt PROVIDED WITH EMESIS BAG TO SPIT IN. O2 TITRATED TO 1L OXYGEN BY NC, SPO2 91% ON CPOX, HR 100. pt WATCHING TV. NO ADDITIONAL REQUESTS.
--- NOTE | 2023-01-27 23:00 | NUR ---
CPOX ALARMING, SPO2 87-88%. TITRATED OXYGEN TO 2L BY NC.
--- NOTE | 2023-01-27 23:52 | NUR ---
RACHEL CRACKERS AND APPLE JUICE PROVIDED PER PATIENT.
--- NOTE | 2023-01-28 01:08 | NUR ---
CHECKED ON pt, RESTING IN BED WITH EYES CLOSED. SPO2 91% WITH 2L OXYGEN BY NC.
--- NOTE | 2023-01-28 02:46 | NUR ---
CHECKED ON pt. RESTING IN BED WITH EYES CLOSED, SPO2 92% ON CPOX WITH 2L OXYGEN BY NC IN PLACE. NO DISTRESS NOTED.
--- NOTE | 2023-01-28 03:06 | NUR ---
CPOX ALARMING, 88-89%, NC ONLY IN ONE NARE, ASSISTED pt TO REAPPLY. SPO2 INCREASES TO 90% ON CPOX WITH 2L OXYGEN IN PLACE. pt STATES "IT KIND OF HURTS TO BREATHE" COMPLAINS OF SOB. LUNG SOUNDS AUSCULTATED, SPORADIC EXP WHEEZES AUSCULTATED. RT IN ROOM AT THIS TIME FOR PRN NEB TREATMENT.
[2023-01-28 04:45] VITALS: BP 128/66
--- NOTE | 2023-01-28 04:52 | NUR ---
PT CALLED, REQUESTED PAIN MEDICATION. TOO EARLY FOR OXYCODONE, GAVE TYLENOL, VS COMPLETED. PT EXPRESSED THAT HE CAN'T "WAIT TO GET THE HELL OUT OF HERE AND TAKE MY OWN MEDICATIONS". SATS 90'S ON 2 L; COUGHING; STATES HE DOESN'T SLEEP ALOT AT NIGHT AT HOME EITHER, JUST DOZES OFF AND ON. NO OTHER NEEDS AT THIS TIME.
--- NOTE | 2023-01-28 05:44 | NUR ---
pt CONTINUES TO COMPLAIN OF GENERALIZED PAIN. IRRITATED WITH BLOOD DRAW FOR LABS, AGREEABLE AFTER EDUCATION. PRN PAIN MEDICATION ADMINISTERED. IV MEDICATION ADMINISTERED WNL. JUICE PROVIDED. CALL LIGHT AND PERSONAL SUPPLIES IN REACH.
[2023-01-28 05:45] LABS: BASOPHILS 0.2 % (0-2); HEMATOCRIT 35.7 % (35.0-50.0); HEMOGLOBIN 11.2 g/dL (12.0-18.0); LYMPHOCYTES 4.7 % (24-44); MCH 24.4 (27-36); MCHC 31.4 g/dl (30-36); MCV 77.9 fl (81-99); MONOCYTES 4.9 % (0-12); NEUTROPHILS 90.2 % (39-80); PLATELET COUNT 165 K/uL (140-440); RBC 4.58 M/ul (4.3-5.7); RDW 17.2 (10.5-15.0)
[2023-01-28 05:57] LABS: ANION GAP 11.7 (7-21); BUN/CREATININE RATIO 22.58 (6.0-28.6); CALCIUM 8.6 mg/dL (8.5-10.1); CREATININE, SERUM 1.24 mg/dL (0.70-1.30); POTASSIUM 4.7 mmol/L (3.5-5.1)
--- NOTE | 2023-01-28 07:24 | NUR ---
REPORT RECEIVED FROM FITZ KAUR. PT RESTING IN BED WITH EYES CLOSED, SUPINE POSIITON. PT REMAINS ON 2L O2 BY NC WITH OXYGNE SATURATION OF 91%. RESPRATIONS EVEN AND UNLABORED. BED RAILSUP. CALL LIGHT WITHIN REACH. PT ALLOWED TO REST.
[2023-01-28] MEDS ORDERED: VITAMIN C250 MG PO (09:07)
[2023-01-28] MEDS ORDERED: CYCLOBENZAPRINE5 MG PO (09:08)
[2023-01-28] MEDS ORDERED: IRON325 M1 PO (09:08)
[2023-01-28] MEDS ORDERED: ASMANEX HFA13 G1 INH (09:09)
[2023-01-28] MEDS ORDERED: NARCAN4 MG NAS (09:10)
[2023-01-28] MEDS ORDERED: REFRESH TEARS15 ML OU (09:12)
--- NOTE | 2023-01-28 09:18 | NUR ---
MORNING ASSESSMENT AND MEDICATION DUE. PT RESTING IN BED WITH EYES CLOSED, RESPIRATIONS EVEN AND MILDY LABORED WITH ABDOMINAL MUSCLE USE SEEN. RR OF 20. PT AWAKENS TO MOVEMENT IN THE ROOM. PT DENIES PAIN AND NAUSEA. PT REPORTS BASELINE SHORTNESS OF BREATH. PT OREINTED TO ALL BUT DATE STATING IT IS "MAY, NO January." PT DOES KNOW YEAR. PT REQUESTS "ONE OF THESE" IV SITE BE DC'D. RIGHT AC NOTED TO HAVE DRY DRAINAGE UNDER DRESSING, DC'D PER PROTOCOL. LEFT AC IV SITE WNL, FLUSHED AND SALINE LOCKED, NO S/S OF PHLEBITIS PRESENT. BASELINE NEUROPATHY CONTINUES. PT AGREES TO GET UP TO CHAIR. STAND BY ASSIST UP TO CHAIR. PT UNSTEADY ON FEET, USING FURNATURE TO AMBULATE, DECLIENS WALKER PUSHING IT OUT OF THE WAY. SCATTERED WHEEZES HEARD THROUGHOUT LUNG LOBES, CRACKELS ALSO HEARD IN RIGHT LOWER LOBE. PT REMASIN ON 2L O2 BY NC WITH OXGYEN SATURATION 90-93%. PT REPORTS 2L O2 AT HOME IS HIS BASELINE. ABDOMEN REMAINS SOFT AND NON TENDER, "HERNIA" UNCHANGED. PT REQUESTS BOWEL MEDICATION, GIVEN. PT RESTING IN CHAIR. NO ADDITIONAL REQUESTS OR COMPLAINTS. CALL LIGHT WITHIN REACH. CHAIR ALARM ON.
--- NOTE | 2023-01-28 09:30 | NUR ---
Spoke with pt. Dr. Sinclair saw earlier. Pt states he will be staying another day at request. He denies needs.
[2023-01-28 09:52] VITALS: BP 151/81
--- NOTE | 2023-01-28 10:20 | NUR ---
THIS RN TO ROOM TO CHECK ON PT. PT REMAINS UP TO CHAIR. PT REPORTS MD WAS IN TO VISIT WITH HIM AND THAT HE CAN "HAVE MY PAIN MEDICAITON MORE NOW." PT REPORTS 3/10 PAIN IN BACK AND LEGS AT THIS TIME AND STATES HE IS OK TO WAIT UNTIL PAIN MEDICAITON IS DUE AT 1130. OXGYEN SATUARTIONS REMAINS AT 93% ON 2L O2 BY NC. PT DENIES ADDITIONAL REQUESTS OR COMPLAINTS. CALL LIGHT WITHIN REACH. CHAIR ALARM ON.
[2023-01-28] MEDS ORDERED: CARAFATE1 GM/10 ML PO (11:02)
--- NOTE | 2023-01-28 11:03 | NUR ---
MED REC COMPLETE
--- NOTE | 2023-01-28 11:11 | NUR ---
Call light answered, patient requests pain medication, "was wondering if it was time yet" discussed with patient it will be available at 11:30. Patient is agreeable at this time.
--- NOTE | 2023-01-28 11:20 | NUR ---
PT REQUESTING MORE PAIN MEDICATION. DR JUAREZ CONSULTED NO NEW ORDERS HAVE BEEN SEEN. VERBAL ORDERS GIVEN TO INCREASE CURRENT DOSE TO Q6PRN RATHER THAN Q8. ORDERS ADJUSTED, REPEAT BACK PERFORMED. AWAITING PHARMACY VARIFICATION.
--- NOTE | 2023-01-28 11:35 | NUR ---
PT CALL LIGHT ON. PT REQUESTS PAIN MEDICATION FOR 10/10 PAIN IN HIS LOWER LEGS AND BACK. SEE MAR FOR MEDICATION GIVEN. ICE WATER REFILLED. PT TOELRATING 2L O2 BY NC WITH OXGYEN SATURATION 90%. PT DENIES ADDITIONAL REQUESTS OR COMPLAINTS. PT NOTED TO HAVE UNLOCED BREAKS ON HIS CHAIR. EDUCATION DONE. PT VERBALIZES UNDERSTANDING. CALL LIGHT WITHIN REACH. CHAIR ALARM ON.
--- NOTE | 2023-01-28 12:35 | NUR ---
THIS RN TO ROOM TO CHECK ON PT. PT REMAINS UP TO CHAIR. PT REPORTS HIS GRANDKIDS ARE COMING TO VISIT HIM LATER TODAY. PT TOLERATING 2L O2 BY NC WITH OXYGEN SATURATIONS OF 91%. PT SHOWS PICTURES OF HIS GRAND CHILDREN AND TALKS ABOUT FAMILY WITH A SMILE. PT REPORTS PAIN HAS IMPROVED NOW /10 AND DENIES NEED FOR ADDITIONAL PAIN MEDICATION. NO ADDITIONAL REQUESTS OR COMPLAINTS. CALL LIGHT WITHIN REACH. CHAIR ALARM ON.
--- NOTE | 2023-01-28 13:16 | NUR ---
REPORT GIVEN TO FITZ WILCOX WHO IS ASSUMING CARE OF PT WITH ASSISTANCE FROM THIS RN.
--- NOTE | 2023-01-28 13:30 | NUR ---
ASSUMING CARE OF PT WITH FITZ DIAZ. PT UP TO CHAIR AWAKE AND WATCHING TELEVISION.
[2023-01-28 13:38] VITALS: BP 124/74
--- NOTE | 2023-01-28 13:46 | NUR ---
PT UP TO CHAIR WITH FOOT OF CHAIR RAISED. PT STATES NEED TO USE RESTROOM, UP TO RESTROOM WITH X1 PERSON ASSIST AND FWW. PT STATES PAIN IS 4/10 DENIES NEED FOR PAIN MEDICATION AT THIS TIME. PT REMAINS DISORIENTED TO DATE, ALERT AND ORIENTED TO PERSON, PLACE, AND SITUATION. BLE REMAIN WEAK AND HAVE NUMBNESS/TINGLING, CHRONIC PER PT FROM PREVIOUS INJURY. WHEEZING CONTINUES IN ALL LOBES OF LUNGS, PT CONTINUES TO HAVE OCCASIONAL DRY COUGH, 2L O2 VIA NC IN PLACE. CPOX IN PLACE, WITH 91% O2 SATURATION. RT AT THE BEDSIDE FOR TREATMENT. PT CONTINUES TO HAVE SOB, INCREASED WITH ACTIVITY. PT REPORTS HE HAS SOB AT BASELINE. PT TOLERATING 2G SODIUM DIET WELL, HAS NOT HAD A BOWEL MOVEMENT SINCE PRIOR TO ADMIT, MIRALAX AT THE BEDSIDE. PT STATES NO FURTHER NEEDS AT THIS TIME, CALL LIGHT WITHIN REACH, CHAIR ALARM ON, FOOT OF CHAIR RAISED.
--- NOTE | 2023-01-28 14:20 | NUR ---
PHYSICAL THERAPY IN ROOM. DID NOT INTERRUPT. PROVIDED PRAYER.
--- NOTE | 2023-01-28 14:28 | NUR ---
PT FINISHED WITH PHYSICAL THERAPY, REPORTS THERAPY "WAS FINE." PT CONTINUES TO TOLERATE 2L O2 BY DC WITH OXGYEN SATURATIONS 89-93%. PT DENIES ADDITIONAL REQUESTS OR COMPLAINTS. PHYSICAL THERAPIST STATES PT WAS ABLE TO AMBULATE 2 LAPS ARROUND THE BED AND SOME MARCHING. PT REPORTS PAIN REMAINS WELL CONTROLLED. CALL LIGHT WITHIN REACH. CHAIR ALARM ON.
--- NOTE | 2023-01-28 15:13 | NUR ---
HOURLY ROUNDING. PT UP TO CHAIR, STATES PAIN IS 4/10, DENIES PAIN MEDICATION AT THIS TIME. PT REQUESTS APPLE JUICE AND RACHEL CRACKERS, GIVEN. PT STATES NO FURTHER NEEDS AT THIS TIME, CALL LIGHT WITHIN REACH, FOOT OF CHAIR RAISED. CPOX IN PLACE WITH O2 SATURATION 90%.
--- NOTE | 2023-01-28 16:15 | NUR ---
PT UP IN BATHROOM WITH PHYSICAL THERAPY. PT STATES PAIN IS 4/10, DENIES NEED FOR PAIN MEDICATION. PT STATES NO NEEDS AT THIS TIME.
--- NOTE | 2023-01-28 17:21 | NUR ---
PATIENT NEEDED TO USE THE BATHROOM. PATIENT IS NOW SITTING ON THE SIDE OF HIS BED WAITING FOR HIS DINNER TO COME. FAMILY ALSO IN ROOM VISITING.
--- NOTE | 2023-01-28 17:43 | NUR ---
PT VISITING WITH FAMILY IN ROOM EATING DINNER. PT STATES PAIN IS 8/10, REQUESTS PAIN MEDICATION, GIVEN. PT STATES NO FURTHER NEEDS AT THIS TIME, CALL LIGHT WITHIN REACH.
--- NOTE | 2023-01-28 17:49 | NUR ---
PT HERE FOR VERTIGO AND COPD EXACERBATION. AMBULATES TO CHAIR AND RESTROOM VIA X1PA AND FWW. TOLERATING 2G SODIUM DIET WELL. PT HAS NOT HAD A BM SINCE PRIOR TO ADMIT, HAD MIRALAX TODAY PER PT REQUEST. PT A+O TO PERSON, PLACE AND SITUATION, DISORIENTED TO TIME OCASSIONALLY. CPOX IN PLACE, O2 SATURATION >88% THIS SHIFT WITH 2L O2 VIA NC. LUNG SOUNDS WHEEZING IN ALL LOBES, PT RECIEVING NEB TREATMENTS BY RT. PT EXPERIENCING SOB AT BASELINE, INCREASED WITH ACTIVITY. ABDOMEN MILDLY DISTENDED D/T "HERNIA" PER PT AND PT STATES IS BASELINE. BOWEL TONES ACTIVE IN ALL QUANDRANTS, PT DENIES NAUSEA TODAY. PT HAS PAIN 4-8/10 THIS SHIFT, PRN PAIN MEDICATION GIVEN. PT URINATING QUANTITY SUFFICIENT INDEPENDENTLY. PT HAS DAUGHTER AND GRANDCHILDREN VISIT THIS EVENING, PT USES CALL LIGHT APPROPRIATELY THROUGHOUT SHIFT.
[2023-01-28 18:01] VITALS: BP 111/66
--- NOTE | 2023-01-28 18:45 | NUR ---
PT RESTING WITH EYES CLOSED, RR 18. O2 SATURATION >88% PER CPOX, PT ON 2L O2 VIA NC. CALL LIGHT WITHIN REACH, BED RAILS UP.
--- NOTE | 2023-01-28 18:54 | NUR ---
PULSE OX ALAMRING. PT ATTEMPTING TO GET HIMSELF UP TO RESTROOM AND IS TANGLED IN TUBING. PT EDUCATION DONE REGARDING FALL PRECUATIONS. PT VERBALIZES UNDERSTANDING BUT CONTINUES TO REPORT HE CAN "GET UP ON MY OWN." PT UP WITH 1 PERSON ASSIST AND FWW. PT CONTINUES TO BE UNSTEADY ON FEET. PT VOIDS WITHOUT ISSUE. MEL CARE PER PT. STAND BY ASSIST BACK TO BED.OXGYEN SATURATIONS 90% ON 2L O2 BY NC. AUDIBLE WHEEZES CONTINUE, RR OF 32 UPON RETURN TO BED, RR SLOWS TO 24 WITH REST. PT DENIES ADDITIONAL REQUESTS OR COMPLAINTS. ICE WATER REFILLED. HEAD OF BED ELEVATED TO 12 DEGERES. PT ENCORUAGED TO SIT UP HIGHER, DECLINES. CALL LIGHT WITHIN REACH. BED RAILS UP.
--- NOTE | 2023-01-28 19:30 | NUR ---
SHIFT REPORT RECEIVED FROM DAYSHIFT FITZ WILCOX AND FITZ DIAZ AT BEDSIDE. pt RESTING IN BED, QUIETLY WITH EYES CLOSED. RR EVEN AND UNLABORED, NO DISTRESS NOTED. CPOX IN PLACE, 2LNC SHOWING SPO2 92%, HR 86. BED ALARM ON FOR SAFETY AND CALL LIGHT IN REACH.
--- NOTE | 2023-01-28 20:19 | NUR ---
PT BACK TO BED AFTER AMBULATING TO BATHROOM WITH FWWGIOVANNY. O2 IN PLACE AT 2LNC. ONCE BACK TO BED NOTED WORK BREATHING INCREASED, SATS PER CPOX 88-92; RECEIVED PHONE CALL WHILE RN IN ROOM, WHILE TALKING DESATED TO 87 OCCASSIONALLY AND ELEVATED TO 90. DENIED OTHER NEEDS AT THIS TIME.
--- NOTE | 2023-01-28 20:49 | NUR ---
BED ALARM SOUNDING, PT LAYING ON BED, SAID GO AHEAD GIVE ME THE BREATHING TX THAT HE HAD REFUSED WHEN RT IN ROOM. COMPLAINS IT "DRIES HIM OUT", PT AGREES IT DOES HELP HIM BREATH BETTER.
--- NOTE | 2023-01-28 21:29 | NUR ---
ROUNDED ON pt, pt AWAKE AND RESTING IN BED, CALL LIGHT IN REACH. CPOX SHOWS SPO2 92%, HR 88. RR 20, NO DISTRESS NOTED. pt RECENTLY GIVEN BREATHING TREATMENT (AT 2044) BY RT JOSUE AFTER PREVIOUSLY REFUSING ORDERED BREATHING TREATMENT PER RT. AT TIME OF INITIAL OFFER OF TX, pt REPORTED HIS THROAT WAS DRY SO HE WAS WANTING TO EAT HIS PUDDING AND DRINK WATER BECAUSE HE THOUGHT THE TX'S WERE DRYING OUT HIS THROAT. pt EDUCATED, BUT CONTINUED TO REFUSE BREATHING TREATMENT. WILL COTHARSHALUE TO MONITOR.
--- NOTE | 2023-01-28 22:30 | NUR ---
ERROR: IGNORE EDITS MADE TO 2229 ASSESSMENT BY THIS RN. THIS RN WAS INTENDING TO EDIT 01/29 MORING ASSESSMENT BY JERI BYRNES, WRONG ASSESSMENT WAS SELLECTED TO EDIT.
[2023-01-28 22:31] VITALS: BP 155/90
--- NOTE | 2023-01-28 22:42 | NUR ---
ASSESSMENT COMPLETE, SCHEDULED MEDS GIVEN-SEE EMAR. CPOX IN PLACE, pt TITRATED FROM 2LNC TO 4LNC pt IS HEADING TO BATHROOM SBA WT FWW WITH ZENA MILLER. IV SITE WNL, BRISK BLOOD RETURN NOTED. CMS INTACT. pt ASKING ABOUT PRN PAIN MEDICATION, BUT THEN STATES, "I DON'T THINK IT'S ACTUALLY TIME FOR IT YET". pt EDUCATED ON AVAILABILITY AND VERBALIZED UNDERSTANDING.
--- NOTE | 2023-01-28 22:45 | NUR ---
SBA TO BATHROOM AND BACK TO BED. WARM BLANKET PROVIDED. DENIES FURTHER CARE/NEEDS AT THIS TIME.
--- NOTE | 2023-01-29 00:05 | NUR ---
PATIENT ASSISTED TO THE BR A SBA W/FWW. PATIENT ABLE TO VOID. PATIENT IS BAKC IN BED RESTING. PATIENT IS SOB W ACTIVITY. PATIENT RATES PAIN AT A 10/10 IN HIS BACK. PATIENT GIVEN PRN PAIN MEDICATION PER ORDER. PATIENT OFFERED BREATHING TX. PATIENT DENIES ANY NEED FOR TX AT THIS TIME. PATIENT DENIES ANY NEEDS AT THIS TIME. CALL LIGHT IN REACH. BED ALARM ON FOR SAFETY.
--- NOTE | 2023-01-29 00:56 | NUR ---
ANSWERED PATIENT'S CALL. GRAPE JUICE ROVIDED. ROOM LIGHTS OFF. NO OTHER NEEDS AT THIS TIME.
--- NOTE | 2023-01-29 01:50 | NUR ---
pt CPOX ALARMING. pt STICKER PULLED OFF FINGURE. NEW STICKER PLACED ON DIFFERENT FINGURE. pt MOVES A LOT IN SLEEP. CANNOT KEEP HANDS STILL. CALL LIGHT WITHIN REACH. NO NEEDS AT THIS TIME.
--- NOTE | 2023-01-29 02:37 | NUR ---
BED ALARM ACTIVATED. pt UP TO USE BR. SBA WITH FWW. 2LNC AT ALL TIME. pt O2 SATURATION AT 93% WHEN BACK IN BED. ASSESSMENT DONE. BED ALARM NEWS REPORTER LIGHT IN REACH. NO OTHER NEEDS AT THIS TIME.
--- NOTE | 2023-01-29 04:02 | NUR ---
PATIENT RESTING IN BED WITH EYES CLOSED. HR 73. CALL LIGHT WITHIN REACH. NO OTHER NEEDS AT THIS TIME.
[2023-01-29 05:35] VITALS: BP 144/86
[2023-01-29 05:40] LABS: BASOPHILS 0.1 % (0-2); HEMATOCRIT 36.1 % (35.0-50.0); HEMOGLOBIN 11.5 g/dL (12.0-18.0); LYMPHOCYTES 6.1 % (24-44); MCH 24.7 (27-36); MCHC 31.9 g/dl (30-36); MCV 77.5 fl (81-99); MONOCYTES 3.8 % (0-12); PLATELET COUNT 160 K/uL (140-440); RBC 4.65 M/ul (4.3-5.7); RDW 17.6 (10.5-15.0)
[2023-01-29 05:48] LABS: ANION GAP 13.1 (7-21); BUN/CREATININE RATIO 32.63 (6.0-28.6); CALCIUM 8.5 mg/dL (8.5-10.1); CREATININE, SERUM 0.95 mg/dL (0.70-1.30); POTASSIUM 5.1 mmol/L (3.5-5.1)
--- NOTE | 2023-01-29 06:16 | NUR ---
VITAL SIGNS AND I&O'S DONE. SCHEDULED MEDICATION ADMINISTERED, SEE MAR. PRN PAIN MEDICATION ADMINSTERED, SEE APR. pT IN BED. CALL LIGHT WITHIN REACH. NO OTHER NEEDS AT THIS TIME.
--- NOTE | 2023-01-29 07:26 | NUR ---
RECIEVED REPORT FROM FITZ THOMAS. PT AWAKE IN BED, O2 SATURATION >90% PER CPOX ON 2L O2 VIA NC. PT STATES NO NEEDS AT THIS TIME, CALL LIGHT WITHIN REACH, BED RAILS UP, BED ALARM ON FOR SAFETY.
--- NOTE | 2023-01-29 07:42 | NUR ---
REPORT RECEIVED FROM MINISTERIO BYRNES. PT RESTINGIN BED WITH EYES CLOSED. RESPIRATIONS EVEN AND MILDY LABORED WITH OCCATIONAL WHEEZES HEARD. OXYGEN SATURATION 93% ON 2L O2 BY NC. JERI RN ASSUMING CARE OF PT WITH ASSISTANCE FROM THIS RN. BED RAILS UP. CALL LIGHT WITHIN REACH. BED ALARM ON. PT ALLOWED TO REST.
--- NOTE | 2023-01-29 08:40 | NUR ---
THIS RN TO ROOM TO CHECK ON PT. PT REQUESTS ASSISTANCE GETTING HIS HAT OFF THE FLOOR. PT REPORTS PAIN REMAINS WELL CONTROLLED AT 4/10 AND DENIES NEED FOR ADDITIONAL PAIN MEDICAITONS AT THIS TIME. PT UP TO CHAIR AND FINISHED WITH BREAKFAST. PHYSICAL AND RESPIRATORY THERAPY TO BEDSIDE TO WORK WITH PT. PT DENIES ADDITIONAL REQUESTS OR COMPLAINTS. PT TOLERATING 2L O2 BY NC WITH OXYGEN SATURATIONS OF 92%. CALL LIGHT WITHIN REACH. BED RAILS UP.
--- NOTE | 2023-01-29 09:30 | NUR ---
PT UP TO CHAIR AWAKE AND ALERT AND ORIENTED TO PERSON AND PLACE, DISORIENTED TO TIME. PT STATES PAIN IS 4/10, DENIES NEED FOR PAIN MEDICATION AT THIS TIME. PT CONTINUES TO HAVE WEAKNESS IN BILAT LEGS, UNSTEADY ON FEET AND REMAINS SOB INCREASED WITH ACTIVITY. AMBULATING TO CHAIR AND RESTROOM VIA X1PA AND FWW. PT CONTINUES TO HAVE EXPIRATORY WHEEZES IN LUNGS, PT REMAINS ON 2L O2 VIA NC AND O2 SATURATION IS >88% PER CPOX. PT EXPERIENCING PAIN IN HIS BACK AND LEGS FROM PREVIOUS INJURY AND "ARTHRITIS" PER PT. ABDOMEN MILDLY DISTENDED, TENDER ON PALPATION WHICH PATIENT STATES IS HIS BASELINE. BOWEL TONES HYPOACTIVE AND PT REPORTS FEELING CONSTIPATED, NO BM SINCE 01/24/23, MIRALAX AND SENNA PROVIDED PER ORDER AND PT REQUEST. PT DENIES NAUSEA AT THIS TIME. CHAIR ALARM ON FOR SAFETY, PT STATES NO FURTHER NEEDS AT THIS TIME, CALL LIGHT WITHIN REACH, FOOT OF CHAIR RAISED.
--- NOTE | 2023-01-29 10:10 | NUR ---
Spoke with Juan. He has finished PT and has labored breathing. He would like to use [facility] for 02 if he needs this on dc. He denies 02 at home now. Spoke Dr. Sinclair, pt will not dc today.
--- NOTE | 2023-01-29 11:10 | NUR ---
PT FINISHES WORKING WITH OT, THIS RN NOTIFIED THAT DURING SHOWER, IV DRESSING BECAME SATURATED, IV DRESSING CHANGED, WNL. PT STATES PAIN IS 9/10, REQUESTS PRN PAIN MEDICATION WHEN DUE. PT STATES NO FURTHER NEEDS AT THIS TIME, CALL LIGHT WITHIN REACH, BED RAILS UP.
--- NOTE | 2023-01-29 11:26 | NUR ---
MS ROUNDS. PT RECEIVING NURSIN CARE. DID NOT INTERRUPT. PROVIDED PRAYER.
--- NOTE | 2023-01-29 12:26 | NUR ---
LUNCH DELIVERED TO PT. STAND BY ASSIST WITH FWW UP TO RESTROOM. PT VOIDS 150ML CLEAR YELLOW URINE. MEL CARE PER PT. STAND BY ASSIST UP TO CHAIR. PT EATING LUNCH. PT REPORTS 4/10 PAIN IN BACK AND LEGS THAT IS WELL CONTROLLED. PT CONTINUES TO TOLERATE 2L O2 BY NC WITH OXGYEN SATUATIONS 90-94%. PT DENIES ADDITIONAL REQUESTS OR COMPLAINTS. CALL LIGHT WITHIN REACH.
--- NOTE | 2023-01-29 13:24 | NUR ---
PT UP TO RESTROOM WITH SBA AND FWW. CPOX IN PLACE, O2 SATURATIONS >88% ON 2L O2 VIA NC. LUNG SOUNDS CONTINUE TO HAVE EXPIRATORY WHEEZES, SOB INCREASES WITH ACTIVITY. BOWEL TONES CONTINUE TO BE HYPOACTIVE, NO BM YET SINCE START OF MIRALAX AND SENNA. ABDOMEN REMAINS DISTENDED AND TENDER TO PALPATION, PT DENIES NAUSEA AT THIS TIME. PT STATES HE WOULD LIKE TO SHAVE WHILE UP TO RESTROOM, PT SITTING IN FRONT OF BATHROOM COUNTER TO SHAVE INDEPENDENTLY. PT AMBULATES BACK TO CHAIR WITH SBA AND FWW, GAIT UNSTEADY, PT IMPULSIVE IN MOVEMENTS. PT STATES NO FURTHER NEEDS AT THIS TIME, CALL LIGHT WITHIN REACH, CHAIR, CHAIR ALARM ON FOR SAFETY.
[2023-01-29 13:49] VITALS: BP 145/88
--- NOTE | 2023-01-29 13:52 | NUR ---
PT REQUESTS TO GET BACK TO BED. STAND BY ASSIST WITH FWW BACK TO BED. VITAL SIGNS STABLE PT VERY SHORT OF BREATH AFTER ACTIVITY OF ADL'S AND TRANSFER BACK TO BED. RR OF 38 CALMS TO 28 AFTER [address] VIDAL TO BEDSIDE FOR ROUNDS. RT CALLED TO BEDSIDE FOR PRN NEBULIZER TX. OXYTNE SATURATIONS 92-95% ON 2L O2 BY BY NC DURING THIS TIME. VITALS SIGNS OTHERWISE STABLE. NO ADDITIONAL REQUESTS OR COMPLAINTS. CALL LIGHT WITHIN REACH. BED ALARM ON.
--- NOTE | 2023-01-29 14:22 | NUR ---
PT LYING IN BED, STATES "I'M TRYING TO GET SOME SLEEP". PT STATES NO NEEDS AT THIS TIME, CALL LIGHT WITHIN REACH, BED RAILS UP, BED ALARM ON FOR SAFETY.
--- NOTE | 2023-01-29 14:27 | NUR ---
UR NOTE [facility] CHRONIC OBSTRUCTIVE PULMONARY DISEASE (ISC) INPATIENT 01/27/23 MET GL DAY 2 01/28/23 VARIANCE GL DAY 3
[2023-01-29 14:40] VITALS: BP 138/98
--- NOTE | 2023-01-29 14:48 | NUR ---
THIS RN NOTIFIED BY ZENA NEVES THAT PT STATES "HIS ARM IS HURTING". IV SITE ASSESSED, NO SIGN OF PHLEBITIS. PT RESTING WITH EYES CLOSED, OXYGEN SATURATION >90% ON 2L NC PER CPOX.
--- NOTE | 2023-01-29 15:38 | NUR ---
PT RESTING IN BED WITH EYES CLOSED, O2 SATURATION 93% ON 2L O2 VIA NC PER CPOX. CALL LIGHT WITHIN REACH, BED RAILS UP, BED ALARM ON FOR SAFETY.
--- NOTE | 2023-01-29 15:48 | NUR ---
PT CALL LIGHT ON. PT REQUESTS ASSISTANCE UP TO RESTROOM. 1 PERSON ASSIST WITH FWW UP TO RESTROOM. PT VOIDS 200ML CLEAR YELLOW URINE. 1 PERSON ASSIST WITH FWW BACK TO BED. PT SEVERELY WHEEZY AND SHORT OF BREATH UPON RETURN TO BED. OXYGEN SATURATIONS REMAIN 89-95% ON 2L O2 BY NC. RR OF 40. MD UPDATED, NO ADDITONAL NEW ORDERS AT THIS TIME. RR SLOWS TO 28 AFTER 3 MINUTES OF REST. PT REPORTS "I'M JUST WORN OUT FROM ALL THE THINGS TODAY." OXGYEN SATUARTION OF 96% ON 2L O2 BY NC AT THIS TIME. PT DENIES ADDITONAL REQUESTS OR COMPLAINTS. CALL LIGHT WITHIN REACH. BED RAILS UP. BED ALARM ON.
--- NOTE | 2023-01-29 16:48 | NUR ---
THIS RN TO ROOM TO CHECK ON PT. PT SITTING ON EDGE OF BED VISITING WITH DAUGHTER AND GRANDDAUGHTER. WORK OF BREATHING MILDLY ELEVATED AT THIS TIME WITH RR OF 24. OXGYEN SATURATION OF 92% ON 2L O2 BY NC. DEFINATE PROLONGED EXPIRATORY PHASE PRESENT. RT AND MD AWARE. PT AND PTS DAUGHTER CONTINUE TO REPORT THIS IS PTS NORMAL WORK OF BREATHING. PT DENIES REQUESTS OR COMPLAINTS. CALL LIGHT WITHIN REACH. BED RAILS UP.
--- NOTE | 2023-01-29 17:15 | NUR ---
PT SITTING UP IN BED EATING DINNER, REQUESTS MORE GRAPE JUICE, GIVEN. PT STATES PAIN IS 5/10, DENIES NEED FOR PAIN MEDICATION AT THIS TIME. PT STATES NO FURTHER NEEDS AT THIS TIME, CALL LIGHT WITHIN REACH, BED RAILS UP.
--- NOTE | 2023-01-29 17:24 | NUR ---
PT CALL LIGHT ON. PT REQUESTS ASSISTANCE UP TO RESTROOM. STAND BY ASSIST WITH FWW UP TO RESTROOM. PT VOIDS 200ML WITH OUT ISSUE. MEL CARE PER PT. STAND BY ASSIST BACK TO SITTING ON EDGE OF BED. PT EATING DINNER. RR OF 28. OXGYEN SATURATION OF 93% ON 2L O2 BY NC. NO ADDITIONAL REQUESTS OR COMPLAINTS. CALL LIGHT WITHIN REACH.
--- NOTE | 2023-01-29 17:40 | NUR ---
PT HERE FOR VERTIGO AND COPD EXACERBATION. AMBULATES TO CHAIR AND RESTROOM VIA X1PA AND FWW. TOLERATING 2G SODIUM DIET WELL. PT HAS NOT HAD A BM SINCE PRIOR TO ADMIT, HAD MIRALAX AND SENNA TODAY PER PT REQUEST. PT A+O TO PERSON, PLACE AND SITUATION, DISORIENTED TO TIME OCASSIONALLY. CPOX IN PLACE, O2 SATURATION >88% THIS SHIFT WITH 2L O2 VIA NC. LUNG SOUNDS WHEEZING IN ALL LOBES, PT RECIEVING NEB TREATMENTS BY RT. SUBJECTIVE INCREASE IN WHEEZING THIS SHIFT, RT AWARE. MILDLY DISTENDED D/T "HERNIA" PER PT AND PT STATES IS BASELINE. BOWEL TONES HYPOACTIVE THIS SHIFT, PT DENIES NAUSEA TODAY. PT HAS PAIN 4-910 THIS SHIFT, PRN PAIN MEDICATION GIVEN. PT URINATING QUANTITY SUFFICIENT INDEPENDENTLY. PT HAS DAUGHTER AND GRANDCHILDREN VISIT TODAY, PT USES CALL LIGHT APPROPRIATELY THROUGHOUT SHIFT.
[2023-01-29 18:06] VITALS: BP 169/92
--- NOTE | 2023-01-29 18:20 | NUR ---
PT CALL LIGHT ON. PT REQUESTS PAIN MEDICAITON FOR 8 BACK AND LEG PAIN. SEE MAR FOR MEDICATION GIVEN. VITAL SIGNS STABLE. PT CONTINES TO TOLERATE 2L O2 BY NC. WORK OF BREATHING UNCHANGED. MILDLY LABORED AT REST. MORE SEVERE WITH ACTIVITY. PT SITS UP ON EDGE OF BED AND TELLS STORIES ABOUT HIS FAMILY AND HISTORY. PT SMILING AND PLESENT. PT TELLS STORIES IN 3-5 WORD PHRASES. NO ADDITIONAL REQUESTS OR COMPLAINTS. CALL LIGHT WITHIN REACH. BED RAILSSUP.
--- NOTE | 2023-01-29 19:10 | NUR ---
REPORT RECIEVED FROM JERI BYRNES AND JOE BYRNES. BOARD UPDATED. DICUSSED BOWEL CARE WITH pt. pt RECEPTIVE. pt IN CHAIR. CALL LIGHT WITHIN REACH.
[2023-01-29 21:40] VITALS: BP 151/85
--- NOTE | 2023-01-29 21:53 | NUR ---
ASSESSMENT AND VITAL SIGNS. IV ASSESSED, WNL. CALL LIGHT WITHIN REACH. SCHEDULED MEDICATIONS ADMINISTERED. pt C/O 08/26 PAIN. DICUSSED PAIN MANAGEMENT WITH pt
--- NOTE | 2023-01-29 23:00 | NUR ---
PATIENT UP TO BR. SBA WITH FWW. pt TOOK DENTURES OUT FOR THE NIGHT. pt FINISHED MIRALAX. CALL LIGHT IN REACH.
--- NOTE | 2023-01-30 00:03 | NUR ---
pt C/O 10/27 PAIN. PRN PAIN MEDICATION ADMINISTERED. WATER REFRESHED. CALL LIGHT IN REACH.
--- NOTE | 2023-01-30 00:53 | NUR ---
pt SITTING UP IN BED COUGHING. pt DENIES SOB. pt SAYS HE WILL BE OK. O2 SATURATIONS AT 92% ON 2LNC. CALL LIGHT IN REACH.
--- NOTE | 2023-01-30 02:30 | NUR ---
PATIENT RESTING IN BED WITH EYES CLOSED. HR 80. CALL LIGHT IN REACH.
--- NOTE | 2023-01-30 04:55 | NUR ---
PATIENT RESTING IN BED WITH EYES CLOSED. HR 74. pt NOT IN DISTRESS. CALL LIGHT WITHIN REACH.
[2023-01-30 05:25] VITALS: BP 149/97
--- NOTE | 2023-01-30 05:48 | NUR ---
ASSESSMENT AND VITAL SIGNS DONE. SCHEDULED MEDICATION ADMINISTERED, SEE APR. pt C/O 10/27 PAIN. PRN PAIN MEDICATION ADMINISTERED, SEE APR. CALL LIGHT WITHIN REACH. NO OTHER NEEDS AT THIS TIME
[2023-01-30 05:51] LABS: BASOPHILS 0.1 % (0-2); HEMATOCRIT 37.4 % (35.0-50.0); HEMOGLOBIN 11.8 g/dL (12.0-18.0); LYMPHOCYTES 5.9 % (24-44); MCH 24.6 (27-36); MCHC 31.6 g/dl (30-36); MCV 77.7 fl (81-99); MONOCYTES 5.6 % (0-12); NEUTROPHILS 88.4 % (39-80); PLATELET COUNT 170 K/uL (140-440); RBC 4.81 M/ul (4.3-5.7); RDW 17.3 (10.5-15.0)
[2023-01-30 06:13] LABS: ANION GAP 13.8 (7-21); BUN/CREATININE RATIO 30.84 (6.0-28.6); CALCIUM 8.5 mg/dL (8.5-10.1); CREATININE, SERUM 1.07 mg/dL (0.70-1.30); POTASSIUM 4.8 mmol/L (3.5-5.1)
--- NOTE | 2023-01-30 06:30 | NUR ---
SPOKE TO pt ABOUT POSSIBLY GETTING A SUPPOSITORY TO HELP WITH BM, pt DENIED. pt AGREED TO DRINK SOME THING TO HELP
--- NOTE | 2023-01-30 06:40 | NUR ---
WARM PRUNE JUICE GIVEN TO pt TO HELP HIME WITH A BM. pt REFUSED THE DRINK AND TURNED OUT THE LIGHTS.
--- NOTE | 2023-01-30 07:03 | NUR ---
REPORT RECEIVED FROM ECONOMIC DEVELOPMENT COORDINATOR RN WILLIAM. PATIENT IS SITTING UPRIGHT IN BED. PATIENT IS AWAKE AND RESPIRATIONS ARE EVEN AND UNLABORED. PATIENT STATED NO NEEDS AT THIS TIME. CALL LIGHT AND PERSONAL BELIONGINGS ARE WITHIN REACH.
--- NOTE | 2023-01-30 09:40 | NUR ---
Spoke with pt and he has completed PT. He is wheezy. We had an in depth discussion about how he functions in his home. Pt now admitting he has been declining. He is receiving help from his grandsons showering, preparing food, shopping. He has been sob and unable to walk to his car, he is not able to drive. He is daughter works supervisor line department. She prepares his food, his grandson's heat his food as he has not been able to do so. Pt is interested in a cg from the [facility]. I called and left a message for Lashon Sy to check if this pt qualifies. He does say he is 100% service connect and has a [employer]. We discussed a [facility]EC and the [facility] needs this whenever there is a change in condition. Pt would prefer to not to complete, but agrees. He calls his daughter and has her on speaker. They both answer questions and per daughter, pt is requiring quite a bit more assistance. She works and is able to provide assist when she is not working. She asks pt what he is wanting and he would like some cg service in the home. GEC completed and I will fax to Lashon at the [facility].
[2023-01-30 10:07] VITALS: BP 161/91
--- NOTE | 2023-01-30 10:45 | NUR ---
MS GELACIO. PT RECEIVING CARE. DID NOT INTERRUPT. PROVIDED PRAYER.
--- NOTE | 2023-01-30 10:58 | NUR ---
RT COLLECTED RAPID COVID 19, RSV, AND FLU SWAB PER DR REQUEST USING IN HOUSE LAB WITH NO COMPLICATIONS AT THIS TIME.
--- NOTE | 2023-01-30 11:00 | NUR ---
Received a call from Lashon Sy. She states this qualifies for the home based program and care giving. She states they do not have GEC and I updated I just completed and have faxed to her. I also updated, pt states he is very depressed at time after losing his sister. [facility] She states they will review his chart and call him.
[2023-01-30 11:38] LABS: INFLUENZA B NAA NEGATIVE (NEGATIVE); RESPIRATORY SYNCYTIAL VIR NAA NEGATIVE (NEGATIVE)
--- NOTE | 2023-01-30 12:24 | NUR ---
PATIENT FULL ASSESSMENT COMPLETE AND DOCUMENTED IN THE CHART. PATIENT EXPRESSED PAIN RATING AT 9/10 THAT IS IN THE BACK. PATIENT GIVEN 10MG OXYCODONE PRN PER THE EMAR. PATIENT REQUESTED TO NOT TAKE THE PRN TYLENOL AT THIS TIME. PATIENT LUNG SOUNDS WITH EXPIRATORY WHEEZING IN BILATERAL UPPER LOBES OF THE LUNG. WHEEZING AND DIMINISHED LUNG SOUNDS AUSCULTATED IN BILATERAL LOWER LUNG LOBES. NORMAL S1 AND S2 AUSCULTATED. BOWEL TONES ACTIVE IN ALL FOUR QUADRANTS. PATIENT RADIAL AND PEDAL PULSES PALPATED AND ARE STRONG. CAPILLARY REFILL LESS THAN 3 SECONDS BILATERALLY IN THE UPPER AND LOWER EXTREMITIES. PATIENT GIVEN A FRESH CUP OF ICE WATER. LUNCH TRAY IS SET UP AND PATIENT IS BEGINNING TO EAT. PATIENT STATED NO FURTHER NEEDS AT THIS TIME. CALL LIGHT AND PERSONAL BELONGINGS ARE WITHIN REACH. FURTHER NEEDS AT THIS TIME. CALL LIGHT
[2023-01-30 14:04] VITALS: BP 163/92
--- NOTE | 2023-01-30 14:49 | NUR ---
ECHO in process at this time. Will pass scheduled medications once patient is available.
--- NOTE | 2023-01-30 15:11 | NUR ---
PATIENT SOLU-MEDROL ADMINISTERED PER THE EMAR. PATIENT LUNG SOUNDS WITH EXPIRATORY WHEEZING BILATERALLY IN ALL LUNG REINA. BILATERAL LOWER LUNG LOBES ARE DIMINISHED WELL. PATIENT STATES THEY DO NOT WANT ANT PAIN MEDICATION AT THIS TIME. PATIENT EXPRESSED NO FURTHER NEEDS AT THIS TIME. CALL LIGHT AND PERSONAL BELONGINGS ARE WITHIN REACH.
[2023-01-30 17:53] VITALS: BP 143/97
--- NOTE | 2023-01-30 18:01 | NUR ---
Admin oxycodone 10mg po at this time for reported 7/10 back pain. Patient provided with hot tea per his request. SP02 91% at this time, RR 24/MIN. Patient denies shortness of breath at rest. Notable sob with exertion.
--- NOTE | 2023-01-30 19:05 | NUR ---
REPORT RECIEVED FROM NELIA BYRNES. BOARD UPDATED. PATIENT SITTING ON EDGE OF BED. CALL LIGHT IN REACH.
--- NOTE | 2023-01-30 20:35 | NUR ---
call light answered, pt provided with warm wash cloth and dry wash cloth to was face and fresh ice water. no additional needs or concerns verbalized when asked, call light in reach and bed alarm on for safety.
--- NOTE | 2023-01-30 21:15 | NUR ---
ASSESSMENT AND VITAL SIGNS DONE. pt REFUSED MIRALAX. pt C/O 10/27 PAIN. PRN PAIN MEDICATION ADMINISTERED. SCHEDULED MEDICATION ADMINISTERED, SEE APR. pt RESTING IN BED. CALL LIGHT IN REACH. WATER REFRESHED.
[2023-01-30 21:39] VITALS: BP 151/94
--- NOTE | 2023-01-30 23:39 | NUR ---
PATIENT IN BED RESTING WITH EYES CLOSED. HR 90. CALL LIGHT IN REACH.
[2023-01-31 01:12] VITALS: BP 123/95
--- NOTE | 2023-01-31 01:48 | NUR ---
PATIENT IN BED RESTING WITH EYES CLOSED. HR 83. CALL LIGHT WITHIN REACH.
--- NOTE | 2023-01-31 03:43 | NUR ---
pt UP TO BR. SBA WITH FWW. pt BACK TO BED. CALL LIGHT WITHIN REACH.
[2023-01-31 04:46] VITALS: BP 105/71
[2023-01-31 05:31] LABS: BASOPHILS 0.2 % (0-2); HEMATOCRIT 35.2 % (35.0-50.0); HEMOGLOBIN 11.2 g/dL (12.0-18.0); LYMPHOCYTES 5.5 % (24-44); MCH 24.6 (27-36); MCHC 31.9 g/dl (30-36); MCV 76.9 fl (81-99); MONOCYTES 6.2 % (0-12); NEUTROPHILS 88.1 % (39-80); PLATELET COUNT 146 K/uL (140-440); RBC 4.57 M/ul (4.3-5.7); RDW 17.4 (10.5-15.0)
[2023-01-31 05:41] LABS: BUN/CREATININE RATIO 31.63 (6.0-28.6); CALCIUM 8.4 mg/dL (8.5-10.1); CREATININE, SERUM 0.98 mg/dL (0.70-1.30)
[2023-01-31 09:01] VITALS: BP 146/90
--- NOTE | 2023-01-31 11:28 | NUR ---
PATIENT SITTING UP IN BED, NO ACUTE DISTRESS. PATIENT IS CURRENTLY ON 2L OXYGEN PER NC, RESPIRATIONS NON LABORED. PATIENT'S SP02 IS 91% AT THIS TIME. PATIENT DENIES SOB AT REST. OXYCODONE 10MG PO ADMIN FOR REPORTS OF 7/10 CHRONIC BACK PAIN.
[2023-01-31 14:17] VITALS: BP 145/81
[2023-01-31 17:04] VITALS: BP 164/97
--- NOTE | 2023-01-31 17:31 | NUR ---
PATIENT IN BED WATCHING TV, NO ACUTE DISTRESS. PATIENT PROVIDED WITH OXYCODONE 10MG PO FOR REPORTS OF 7/10 BACK PAIN. PATIENT REMAINS ON 2L OXYGEN PER NC, RESPIRATIONS NON LABORED. SP02 91% AT THIS TIME.
[2023-01-31 20:12] VITALS: BP 151/95
--- NOTE | 2023-01-31 20:19 | NUR ---
[facility] CALLED [facility]UR[facility]ES [facility]ATION REQUESTING NICCIO. THIS WAS PROVIDED. PT. VITALS AND I/OS CHARTED. ROOM TIDIED, TRASH CANS EMPTIED, BED MADE. RN NOTIFIED OF BP READING. CALL LIGHT LEFT WITHIN REACH. NO OTHER NEEDS AT THIS TIME.
--- NOTE | 2023-01-31 20:28 | NUR ---
PT. ASSISTED UP TO BATHROOM. PT. VOIDED. PT NOW UP TO SHAVE FACE. RAISED PRINTER STILL IN ROOM WILL WAIT TO ASSIST PT. TO BED.
--- NOTE | 2023-01-31 20:29 | NUR ---
PATIENT BACK IN CHAIR. CALL LIGHT LEFT WITHIN REACH. RT IN ROOM. NO OTHER NEEDS AT THIS TIME.
--- NOTE | 2023-01-31 21:32 | NUR ---
UPON BRINGING IN CHAIR ALARM PT. BECAME IMPULSIVE TRYING TO JUMP OUT OF CHAIR AND GET INTO BED. PT. ASSISTED WITH FWW TO BED. BED ALARM SET, CALL LIGHT WITHIN REACH. STRAWBERRY ENSURE PROVIDED. NO OTHER NEEDS AT THIS TIME.
--- NOTE | 2023-01-31 23:30 | NUR ---
REPORT RECEIVED FROM CAILIN BYRNES. PT RESTING IN BED, WATCHING TV. NC @ 1L, CPOX 96%. CALL LIGHT IN REACH, BED ALARM ON, RAILS UP.
--- NOTE | 2023-01-31 23:37 | NUR ---
PT STATES HE HAS 9/10 ACHING BACK AND KNEE PAIN, PRN PAIN MED PROVIDED. NO OTHER NEEDS AT THIS TIME. CALL LIGHT IN REACH.
--- NOTE | 2023-02-01 00:51 | NUR ---
PT CALLS FOR IV TO BE LOOKED AT. RN EXAMINES IV, WNL, COBAN PLACED OVER SITE. PT REQUESTS WATER, PROVITED. PT REQUESTS JUICE, OPTIONS PROVIDED, PT DECLINES. PT ASKS FOR HOT TEA, PROVIDED. PT STATES NO OTHER NEEDS AT THIS TIME. CALL LIGHT IN REACH, BED ALARM ON.
--- NOTE | 2023-02-01 02:00 | NUR ---
PT UP TO USE URINAL AND BACK TO BED. PT STATES NO OTHER NEEDS AT THIS TIME. CALL LIGHT IN REACH.
--- NOTE | 2023-02-01 03:00 | NUR ---
PT CALLS TO USE URINAL, PROVIDED. SPO2 93% ON 1L NC. PT STATES NO OTHER NEEDS. CALL LIGHT IN REACH.
[2023-02-01 03:56] VITALS: BP 151/95
--- NOTE | 2023-02-01 04:03 | NUR ---
PT RESTING IN BED. LUNGS HAVE INSPIRATIRY AND EXPIRATORY WHEEZING. PT DECLINES BREATHING TREATMENT AT THIS TIME. PT DECLINES ANY OTHER NEEDS. PT TALKING ABOUT WANTING TO "GET OUT OF HERE TODAY.". CPOX 92% ON 1L NC. CALL LIGHT IN REACH. BED ALARM ON.
--- NOTE | 2023-02-01 05:19 | NUR ---
PT REPORTS 9/10 BACK AND KNEE PAIN. PAIN MED PROVIDED. SCHEDULED MED PROVIDED. PT REQUESTS HOT TEA, PROVIDED. PT REQUESTS ICE WATER, PROVIDED. PT REQUESTS WARM WASH CLOTH, PROVIDED. IV WNL, FLUSHED WELL. SPO2 90% ON 2L NC. PT STATES NO OTHER NEEDS AT THIS TIME. CALL LIGHT IN REACH.
[2023-02-01 05:58] LABS: HEMATOCRIT 37.7 % (35.0-50.0); HEMOGLOBIN 11.9 g/dL (12.0-18.0); MCH 24.5 (27-36); MCHC 31.6 g/dl (30-36); MCV 77.5 fl (81-99); PLATELET COUNT 155 K/uL (140-440); RBC 4.86 M/ul (4.3-5.7); RDW 17.6 (10.5-15.0)
[2023-02-01 06:00] LABS: ANION GAP 10.9 (7-21); BUN/CREATININE RATIO 32.6 (6.0-28.6); CALCIUM 8.5 mg/dL (8.5-10.1); CREATININE, SERUM 0.92 mg/dL (0.70-1.30); POTASSIUM 4.9 mmol/L (3.5-5.1)
--- NOTE | 2023-02-01 06:26 | NUR ---
PT CALLS TO USE URINAL, PROVIDED. NO OTHER NEEDS AT THIS TIME. CALL LIGHT IN REACH.
[2023-02-01 06:31] LABS: BANDS, MANUAL DIFF 3; LYMPHOCYTES, MANUAL DIFF 2; MONOCYTES, MANUAL DIFF 6; NEUTROPHILS, MANUAL DIFF 89
--- NOTE | 2023-02-01 08:35 | NUR ---
Patient sitting up on edge of bed, sob noted. Patient reports throat and oral pain. Patient has notable white coating on tongue-Updated Dr. Chand. Patient is irritable this am with morning cares and medication administration. Patient reporting he is ready to discharge home and is "tired of being woken up". Breakfast to patient at this time. Told patient I would return to check on him after his breakfast. Call light within reach. sp02 91% on 2L oxygen per nc.
[2023-02-01 09:15] VITALS: BP 171/90
--- NOTE | 2023-02-01 11:05 | NUR ---
ADMIN OXYCODONE 10MG PO FOR REPORTS OF ABDOMINAL/BACK PAIN, 08/26. PATIENT UP TO RESTROOM TO VOID AT THIS TIME. PT REMAINS ON 2L OXYGEN PER NC, SP02 91%.
--- NOTE | 2023-02-01 12:36 | NUR ---
PATIENT SITTING UP IN CHAIR EATING LUNCH, NO ACUTE DISTRESS. PATIENT SOB WITH EXERTION. CONT SP02 91% AT THIS TIME ON 2L OXYGEN PER NC. PATIENT REMAINS CLOSE TO RN STATION, CALLING STAFF APPROPRIATELY.
--- NOTE | 2023-02-01 14:43 | NUR ---
Patient taking a nap in bed, no distress, respiration non labored, sp02 93% on 2L oxygen per nc. Patient close to RN station.
[2023-02-01 14:57] VITALS: BP 149/97
--- NOTE | 2023-02-01 16:52 | NUR ---
Patient up to void, clear yellow urine noted. Patient requesting pain medication-admin oxycodone 10mg po at this time. Fresh water provided to patient. Patient has a family member at bedside. sp02 93% on 2l oxygen per nc.
[2023-02-01 18:16] VITALS: BP 157/94
--- NOTE | 2023-02-01 19:34 | NUR ---
REPORT RECEIVED FROM DAY SHIFT RN. PT SITTING ON SIDE OF BED ALERT AND ORIENTED. SBA WITH FWW TO BR TO VOID AND HAVE BM. BACK TO BED. INCREASED RESPIRATIONS AND WHEEZE NOTED AFTER AMB. SpO2 89% WITH 2.5L/NC IN PLACE. SpO2 >90% WITH A FEW MINUTES REST. PT DENIES FURTHER NEEDS. WHITE BOARD UPDATED. CALL LIGHT IN REACH.
[2023-02-01 21:27] VITALS: BP 142/89
--- NOTE | 2023-02-01 22:02 | NUR ---
EVENING ASSESSMENT COMPLETE. SCHEDULED MEDS ADMIN PER EMAR. PT DENIES PAIN OR NAUSEA. DENIES SOB. AUDIBLE WHEEZE NOTED. EXPIRATORY WHEEZE AUSCULTATED THROUGHOUT. SpO2 LOW 90'S WITH 2L/NC IN PLACE. CPOX IN PLACE. PT C/O THROAT DISCOMFORT. SCHEDULED MEDS ADMIN. ENSURE PROVIDED PER REQUEST. PT DENIES QUESTIONS OR CONCERNS. CALL LIGHT IN REACH. BED ALARM FOR SAFETY.
--- NOTE | 2023-02-01 22:45 | NUR ---
CALL LIGHT ANSWERED. PT REPORTS BACK/BLE PAIN 10/27. PRN FOR PAIN ADMIN PER EMAR. NO SWALLOWING ISSUES NOTED. PUDDING PROVIDED PER REQUEST. NO FURTHER NEEDS.
--- NOTE | 2023-02-02 00:52 | NUR ---
PT LYING IN BED WATCHING TV. SpO2 LOW 90'S. HR 90'S. BED ALARM FOR SAFETY. CALL LIGHT IN REACH.
--- NOTE | 2023-02-02 01:45 | NUR ---
CALL LIGHT ANSWERED. PT UP TO BR WITH FWW AND MINIMAL SBA TO VOID. BACK TO BED, SHARITA WELL. NO FURTHER NEEDS.
--- NOTE | 2023-02-02 03:32 | NUR ---
CALL LIGHT ANSWERED. PT REQUESTING "SOMETHING FOR PAIN" TOO SOON FOR OXYCODONE. TYLENOL OFFERED. PT REFUSED TYLENOL, WOULD LIKE TO WAIT FOR OXYCODONE. NO FURTHER NEEDS AT THIS TIME.
--- NOTE | 2023-02-02 04:00 | NUR ---
PATIENT ASSISTED TO THE BR A SBA W/FWW. PATIENT ABLE TO VOID. PATIENT TITRATED TO 4L VIA NC WITH AMBULATION. PATIENT IS BACK IN BED RESTING. PATIENT TITRATED BACK DOWN TO 2L VIA NC. PATIENT SOB W/ACTIVITY. PATIENT DENIES THE NEED FOR A NEB TX. PATIENT DENIES ANY FURTHER NEEDS. CALL LIGHT AND BELONGINGS ARE WITHIN REACH.
[2023-02-02 04:19] VITALS: BP 145/90
--- NOTE | 2023-02-02 04:30 | NUR ---
PT AWAKE IN BED. PRN FOR PAIN ADMIN FOR 8/10 BLE PAIN. ENSURE PROVIDED PER REQUEST. ASSISTED WITH ORAL CARE. NO FURTHER NEEDS.
[2023-02-02 05:42] LABS: BASOPHILS 0.1 % (0-2); HEMATOCRIT 36.1 % (35.0-50.0); HEMOGLOBIN 11.5 g/dL (12.0-18.0); LYMPHOCYTES 5.4 % (24-44); MCH 24.5 (27-36); MCHC 31.9 g/dl (30-36); MCV 76.9 fl (81-99); MONOCYTES 4.6 % (0-12); NEUTROPHILS 89.9 % (39-80); PLATELET COUNT 143 K/uL (140-440); RDW 17.7 (10.5-15.0)
[2023-02-02 06:20] LABS: ALBUMIN 3.1 g/dL (3.4-5.0); ALBUMIN/GLOBULIN RATIO 0.91 (1.1-2.4); ANION GAP 8.8 (7-21); BILIRUBIN, TOTAL 0.5 ng/dL (0.2-1.0); BUN/CREATININE RATIO 29.54 (6.0-28.6); CALCIUM 8.2 mg/dL (8.5-10.1); CREATININE, SERUM 0.88 mg/dL (0.70-1.30); POTASSIUM 4.8 mmol/L (3.5-5.1); PROTEIN, TOTAL 6.5 g/dL (6.4-8.2)
--- NOTE | 2023-02-02 08:02 | NUR ---
REPORT RECEIVED FROM FITZ AKHTAR. PT RESTING WITH EYES CLOSED, RESPIRATIONS EVEN AND UNLABORED. NO ADDITIONAL REQUESTS OR COMPLAINTS. CALL LIGHT WIHTIN REACH. BED RAILS UP.
--- NOTE | 2023-02-02 08:59 | NUR ---
MORNING ASSESSMENT AND MEDICATION DUE. PT SITTING ON EDGE OF BED, FINISHED WITH BREAKFAST. PT REPORTS 8/10 PAIN IN LEGS AND LOWER BACK. PT UPDATED ON MEDICATIONS AVALIABLE. PT DECLINES TYLENOL AND STATES "I DON'T NEED ANY OTHER OF THOSE MEDICINCES." PT ALERT AND ORIENTED TO ALL BUT EXACT DATE. PT IS ABLE TO STATE IS IS "FRIDAY."NEUROPATHY UNCHANGED. EXPIRATORY WHEEZE HEARD IN UPPER LOBES OF LUNGS. LOWER LOBES TIGHT AND MILDY DEMINISHED. PT CONTINUES ON 2L O2 BY [place] WITH OXGYEN SATURATIONS 89-92%. PT TELLS STORIES USING 5-7 WORD SENTENCES. PT DENEIS SHORTNESS OF BREATH AT THIS TIME ALTHOUGH PROLONGED EXPAROTRY PHASE AND ABDOMINAL MUSCLE USE PRESENT. DYSPNEA ON EXERTION CONTINUES. ABDOMEN REMAINS SOFT AND NON TENDER. LUMP NEAR UMBILICAL SITE "HERNIA" UNCHANGED. PT REPORTS PASSING SAIDA. PT DENIES BOWEL MEDICATIONS. EDUCATION DONE REGARDING BOWELS AND PAIN MEDICATION, PT CONTINUES TO DECLINE MEDICAITON. OTHER MEDICAITONS GIVEN. NO ADDITIONAL REQUESTS OR COMPLAINTS. CALL LIGHT WITHIN REACH. BED RAILS UP.
--- NOTE | 2023-02-02 10:19 | NUR ---
THIS RN TO ROOM TO CHECK ON PT. PT AGIATED ABOUT PLAN FOR DISCHARGE. PT UPDATED AND STATES "OK, NOW I THAT I UNDERSTAND I'M OK WITH IT." PT REPORTS 8/10 PAIN IN BACK AND LOWER LEGS. SEE MAR FOR MEDICATION GIVEN. PT TOLEATEING 2L O2 BY [place] WITH OXGYEN SATURATIONS OF 88-92%. PT TALKING WITH DAUGHTER ON THE PHONE. NO ADDITONAL REQUESTS OR COMPLAINTS. CALL LIGHT WITHIN REACH. BED RAILS UP.
[2023-02-02 10:33] VITALS: BP 146/95
--- NOTE | 2023-02-02 11:24 | NUR ---
THIS RN TO ROOM TO CHECK ON PT. PT UPDATED ON PLAN OF CARE. PT ANTICIPATING DISCHARGE. PT REPROTS HIS DAUGHTER WILL PICK HIM UP. PT REMAINS ON 2L O2 BY [place] WITH OXGYEN SATUATIONS OF 92%. CPOX DC'D PER PT REQUEST. PT REMAINS UP TO CHAIR. REPORTS 1.5/10 PAIN IN BACK AND LOWER LEGS. PT DENIES NEED FOR ADDITIOANL PAIN MEDICATION. NO ADDITIONAL REQUESTS OR COMPLAINTS. CALL LIGHT WITHIN REACH.
[2023-02-02] MEDS ORDERED: PREDNISONE20 MG PO (12:16)
[2023-02-02] MEDS ORDERED: NYSTATIN100000 UN1 PO (12:17)
--- NOTE | 2023-02-02 12:19 | NUR ---
HOURLY ROUNDING: PT UP TO CHAIR FOR LUNCH. TRAY DELIVERED. PLAN FOR DISCHARGE REVIEWED WITH PT. PT VERBALIZES UNDERSTANDING. OXGYEN SATURATION 91% ON 2L O2 BY NC. PT CONTINUES TO REPORT 1/10 PAIN IN BACK AND BLE. PT DENIES NEED FOR ADDITONAL PAIN MEDICATION. NO ADDITIONAL REQUESTS OR COMPLAINTS. CALL LIGHT WITHIN REACH.
--- NOTE | 2023-02-02 12:38 | NUR ---
PT READY FOR DISCHRAGE. PT DRESSED WITH ONE PERSON ASSIST. PT CONTINUES TO TOLEARTE 2L O2 BY NC, OXGYEN USE AT HOME REVEIWED WITH PT IN DETAIL. PT VERBALIZES UNDERSTANDING. DISCHARGE INSTRUCTIONS REVIEWED IN DETAIL WITH PT. PT VERBALZIES UNDERSTANDING AND IS ABLE TO REPEAT BACK INSTUCTIONS. VITAL SIGNS STABLE. IV DC'D PER PROTOCOL. GAUZE AND COBAN APPLIED. PT CALLS HIS DAUGHTER STATING SHE WILL BE HERE SHORTLY TO PICK HIM UP. PT DENEIS ADDITIONAL REQUESTS OR CONCERNS. INCINERATOR ATTENDANT IN ROOM WORKING WITH PT TO PACK BELONGINGS.
[2023-02-02 12:42] VITALS: BP 149/97
--- NOTE | 2023-02-02 13:35 | NUR ---
PTS DAUGHTER ARRIVED TO MATERIALS SCHEDULER PT. PT TRANSFERES SELF TO WHEELCHAIR. PHARMACIST, YENIFER, TO BEDSIDE TO REVIEW MEDICATIONS INCLUDING PREDNISONE TAPER. PT AND DAUGHTER VERBALIZE UNDERSTANDING. HOME OXYGEN SAFETY AND USE REVIEWED WITH PT AND DAUGHTER WHO BOTH VERBALIZE UNDERSTANDING. PT WHEELED FROM MED/SURG WITH DAUGHTER AND ALL BELONGINGS. NO ADDITIONAL REQUESTS OR CONCERNS.
== END 2023-02-02 13:35 | disposition home or self-care (01) | DRG 149 ==
LOC: ED 11:51 → MS 14:25
PROVIDERS: Emergency Medicine; ADMIT Family Medicine; ATTEND Family Medicine
DX: R42 Dizziness and giddiness (principal); J44.1 Chronic obstructive pulmonary disease with (acute) exacerbation; I10 Essential (primary) hypertension; N40.0 Benign prostatic hyperplasia without lower urinary tract symptoms; Z87.891 Personal history of nicotine dependence; Z11.52 Encounter for screening for COVID-19
CPT/HCPCS: 36415; 70450; 70496; 70498; 71045; 71250; 80048; 80053; 83735; 83880; 84484; 85025; 85610; 85730; 87502; 93005; 93010; 93306; 94640; 94667; 94668; 94761; 94762; 97116; 97162; 97165; 97530; 97535; A9270; C9803; J1650; J2060; J2405; J2920; J2930; J7512; U0002

== ENCOUNTER 2023-03-10 22:32 | Emergency (ER) | payer OTHER ==
[~2023-03-10] VITALS: Ht 182.9 cm; Wt 107.0 kg
[~2023-03-10 22:32] MED LIST changes: +ASMANEX HFA13 G1 INH; +CARAFATE1 GM/10 ML PO; +CYCLOBENZAPRINE5 MG PO; +IRON325 M1 PO; +MORPHINE SULFAT15 MG PO; +NARCAN4 MG NAS; +NYSTATIN100000 UN1 PO; +PREDNISONE20 MG PO; +PREDNISONE50 MG PO; +REFRESH TEARS15 ML OU; +VITAMIN C250 MG PO
--- OUTSIDE RECORDS SUMMARY | 2023-03-10 22:40 | XMS ---
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 Karrie has no Care Guidelines for this patient. Eliane VISIT COUNT (12 MO.) 5 [facility] [place] [facility]. TOTAL 5 NOTE: Visits indicate total known visits. ED/C VISIT TRACKING (12 MO.) 03/10/2023 22:[address] 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 - Low back pain, unspecified - Presence of left artificial knee joint - Radiculopathy, lumbar region 01/26/2023 11:52 [facility] TYPE: Emergency COMPLAINT: - DIZZINESS 10/05/2022 14:16 [facility] TYPE: Emergency COMPLAINT: - SHORTNESS OF BREATH DIAGNOSES: - Allergy status to penicillin - Chronic obstructive pulmonary disease with (acute) exacerbation - Essential (primary) hypertension - Other termite treater (current) drug therapy - Shortness of breath 05/10/2022 18:07 [facility] TYPE: Emergency COMPLAINT: - DIFFICULTY BREATHING DIAGNOSES: - Allergy status to penicillin - Chronic obstructive pulmonary disease with (acute) exacerbation - Essential (primary) hypertension - Other termite treater (current) drug therapy - Shortness of breath INPATIENT VISIT TRACKING (12 MO.) 01/26/2023 14:25 [facility] TYPE: Medical Surgical COMPLAINT: - VERTIGO, COPD EXACERBATION DIAGNOSES: - Benign prostatic hyperplasia without lower urinary tract symptoms - Benign prostatic hyperplasia without lower urinary tract symptoms - Chronic obstructive pulmonary disease with (acute) exacerbation - Dizziness and giddiness - Dizziness and giddiness - Encounter for screening for COVID-19 - Encounter for screening for COVID-19 - Essential (primary) hypertension - Essential (primary) hypertension - Personal history of nicotine dependence - Personal history of nicotine dependence [email or web address]
[2023-03-10] MEDS ORDERED: CYMBALTA30 MG PO (23:52)
[2023-03-10] MEDS ORDERED: PERCOCET 5-3251 EACH PO (23:52)
[2023-03-11 01:48] VITALS: BP 120/83
== END 2023-03-11 01:49 | disposition home or self-care (01) ==
LOC: ED 22:32
DX: M54.50 Low back pain, unspecified (principal); G89.29 Other chronic pain; I10 Essential (primary) hypertension; J44.9 Chronic obstructive pulmonary disease, unspecified; Z88.0 Allergy status to penicillin; Z79.899 Other long term (current) drug therapy
CPT/HCPCS: 96374; 96375; 99283-25; J1885; J2270

== ENCOUNTER 2024-01-23 16:12 | Emergency (ER) | payer OTHER ==
[~2024-01-23] VITALS: Ht 182.9 cm; Wt 116.7 kg
[~2024-01-23 16:12] MED LIST changes: +CYMBALTA30 MG PO
[2024-01-23 16:27] LABS: EOSINOPHILS 6.2 % (0-6); HEMATOCRIT 40.5 % (35.0-50.0); HEMOGLOBIN 12.9 g/dL (12.0-18.0); LYMPHOCYTES 28.3 % (24-44); MCH 23.5 (27-36); MCHC 31.9 g/dl (30-36); MCV 73.7 fl (81-99); MONOCYTES 9.6 % (0-12); NEUTROPHILS 54.9 % (39-80); PLATELET COUNT 304 K/uL (140-440); RBC 5.49 M/ul (4.3-5.7); RDW 19.9 (10.5-15.0)
[2024-01-23] MEDS ORDERED: ASPIRIN 81 MG CHEW PO ONE (16:30)
[2024-01-23] MEDS ORDERED: ALBUTEROL/IPRATROPIUM 3 ML NEB INH PRN (16:30)
[2024-01-23] MEDS ORDERED: NITROGLYCERIN 0.4 MG SUBL SL PRN (16:30)
[2024-01-23 16:37] LABS: INR 1.04 (0.80-1.30); PROTIME 12.9 Sec (11.2-14.2)
[2024-01-23 16:49] LABS: ALBUMIN 2.8 g/dL (3.4-5.0); ALBUMIN/GLOBULIN RATIO 0.52 (1.1-2.4); ALKALINE PHOSPHATASE 199 U/L (46-116); ALT (SGPT) 13 U/L (14-59); ANION GAP 12.2 (7-21); AST (SGOT) 20 U/L (15-37); BILIRUBIN, TOTAL 0.6 ng/dL (0.2-1.0); BUN/CREATININE RATIO 8.49 (6.0-28.6); CALCIUM 8.7 mg/dL (8.5-10.1); CARBON DIOXIDE 27 mmol/L (21-32); CHLORIDE 100 mmol/L (98-107); CREATININE, SERUM 1.06 mg/dL (0.70-1.30); GLOMERULAR FILTRATION RATE,EST 73 mL/min (>60); POTASSIUM 4.2 mmol/L (3.5-5.1); PROTEIN, TOTAL 8.2 g/dL (6.4-8.2); UREA NITROGEN 9 mg/dL (7-18)
[2024-01-23] MEDS ORDERED: MORPHINE SULFATE 4 MG/ML VIAL IV ONE (17:30)
[2024-01-23] MEDS ORDERED: ondansetron HCL 4 MG/2 ML VIAL IV ONE (17:30)
[2024-01-23 19:11] VITALS: BP 130/95
--- NOTE | 2024-01-24 19:46 | EKG ---
[facility] [address] [place] [address] Signed Sinus tachycardia Minimal voltage criteria for LVH, may be normal variant ( R in aVL ) Nonspecific ST abnormality Abnormal ECG When compared with ECG of 26-JAN-2023 12:58, No significant change was found Confirmed by Clark Roes MD ([id number]) on 01/24/2024 7:46:27 PM Electronically Signed By: CLARK ROSE MD 01/24/241945 PATIENT NAME: MOISES BHATIA Electrocardiogram DATE OF : 46 PHYSICIAN: CLARK ROSE MD REPORT #: [id number] REPORT IS CONFIDENTIAL AND NOT TO BE RELEASED WITHOUT AUTHORIZATION
== END 2024-01-23 19:13 | disposition home or self-care (01) ==
LOC: ED 16:12
PROVIDERS: Emergency Medicine
DX: R07.9 Chest pain, unspecified (principal); R10.13 Epigastric pain; I11.0 Hypertensive heart disease with heart failure; I50.9 Heart failure, unspecified; J44.9 Chronic obstructive pulmonary disease, unspecified; Z88.0 Allergy status to penicillin; Z79.899 Other long term (current) drug therapy
CPT/HCPCS: 36415; 71045; 74176; 80053; 83735; 83880; 84484; 85025; 85610; 93005; 93010; 94640; 96374; 96375; 99285-25; J2270; J2405